=== PATIENT | male | born 1935 | race Caucasian/White ===

== ENCOUNTER 2019-12-01 07:00 | Outpatient (CLI) | payer MEDICARE, SELFPAY ==
[2019-12-01 07:36] LABS: Hemoglobin A1C 6.1 % (<5.7)
[2019-12-01 07:44] LABS: Blood Urea Nitrogen 32 mg/dL (9-20); Calcium 8.7 mg/dL (8.4-10.2); Carbon Dioxide 25 mmol/L (22-30); Chloride 106 mmol/L (98-107); Cholesterol 158 mg/dL (0-200); Estimated Glomerular Filt Rate 45; Glucose 112 mg/dL (75-110); HDL Direct 38 mg/dL; Potassium 4.4 mmol/L (3.4-5.0); Sodium 138 mmol/L (137-145); Triglycerides 72 mg/dL (<150)
[2019-12-01 07:55] LABS: LDL Cholesterol Direct 83 mg/dL
[2019-12-01 08:23] LABS: Free T4 Free Thyroxine 1.44 ng/mL (0.78-2.19)
[2019-12-05 22:55] LABS: Homocysteine 15.3 umol/L (<11.4)
== END 2019-12-01 07:01 | disposition home or self-care (01) ==
PROVIDERS: PCP Internal Medicine; Visit Provider Internal Medicine
DX: E03.9 Hypothyroidism, unspecified (principal); E78.2 Mixed hyperlipidemia; R79.89 Other specified abnormal findings of blood chemistry; I10 Essential (primary) hypertension; E11.22 Type 2 diabetes mellitus with diabetic chronic kidney disease; N18.2 Chronic kidney disease, stage 2 (mild)
CPT/HCPCS: 36415; 80048; 80061; 83036; 83090; 84439; 84443

== ENCOUNTER 2020-04-24 07:37 | Outpatient (CLI) | payer MEDICARE, SELFPAY ==
[2020-04-24 08:07] LABS: Anion Gap 6 mmol/L (8-16); Blood Urea Nitrogen 27 mg/dL (9-20); Calcium 9.1 mg/dL (8.4-10.2); Carbon Dioxide 28 mmol/L (22-30); Chloride 106 mmol/L (98-107); Cholesterol 140 mg/dL (0-200); Estimated Glomerular Filt Rate 48; Glucose 117 mg/dL (75-110); HDL Direct 39 mg/dL; Hemoglobin A1C 5.6 % (<5.7); Potassium 4.5 mmol/L (3.4-5.0); Sodium 140 mmol/L (137-145); Triglycerides 72 mg/dL (<150)
[2020-04-24 08:18] LABS: LDL Cholesterol Direct 71 mg/dL
[2020-04-24 09:43] LABS: Free T4 Free Thyroxine 1.52 ng/mL (0.78-2.19)
[2020-04-27 22:44] LABS: Vitamin D 1,25 (OH)2 Total 20 pg/mL (18-72); Vitamin D2 1,25 (OH)2 <8 pg/mL; Vitamin D3 1,25 (OH)2 20 pg/mL
[2020-05-01 12:35] LABS: Homocysteine 12.2 umol/L (<11.4)
== END 2020-04-24 07:38 | disposition home or self-care (01) ==
PROVIDERS: PCP Internal Medicine; Visit Provider Internal Medicine
DX: E11.22 Type 2 diabetes mellitus with diabetic chronic kidney disease (principal); I12.9 Hypertensive chronic kidney disease with stage 1 through stage 4 chronic kidney disease, or unspecified chronic kidney disease; N18.2 Chronic kidney disease, stage 2 (mild); E03.9 Hypothyroidism, unspecified; R79.89 Other specified abnormal findings of blood chemistry; E78.2 Mixed hyperlipidemia; E55.9 Vitamin D deficiency, unspecified
CPT/HCPCS: 36415; 80048; 80061; 82652; 83036; 83090; 84439; 84443

== ENCOUNTER 2020-09-05 08:05 | Outpatient (CLI) | payer MEDICARE, SELFPAY ==
[2020-09-05 08:40] LABS: Basophils Percent Auto 0.5 % (0.2-1.2); Eosinophils Absolute Auto 0.4 K/mm3 (0-0.3); Eosinophils Percent Auto 4.8 % (0-4.4); Hematocrit 37.2 % (42.0-52.0); Immature Granulocyte Absolute 0.03 K/mm3 (0.00-0.031); Immature Granulocyte Percent A 0.4 % (0-0.5); Lymphocytes Absolute Auto 1.73 K/mm3 (0.9-3.2); Lymphocytes Percent Auto 23.7 % (18.3-44.2); Mean Corpuscular HGB Conc 32.3 g/dl (32-36); Mean Corpuscular Volume 96.1 fl (80-100); Mean Platelet Volume 9.7 fl (7.4-10.4); Monocytes Absolute Auto 0.7 K/mm3 (0.1-0.6); Monocytes Percent Auto 9.3 % (2.6-8.5); Neutrophils Absolute Auto 4.5 K/mm3 (1.3-6.7); Neutrophils Percent Auto 61.3 % (45.5-73.1); Platelet Count Result 227 k/mm3 (150-375); Red Blood Count 3.87 M/mm3 (4.6-6.20); Red Cell Distribution Width 13.7 % (11.5-14.5); White Blood Count 7.3 K/mm3 (4.5-10.0)
[2020-09-05 09:05] LABS: Alanine Aminotransferase 23 U/L (4-50); Albumin Level 4.1 g/dL (3.5-5.1); Alkaline Phosphatase 56 U/L (38-126); Anion Gap 5 mmol/L (8-16); Aspartate Amino Transferase 31 U/L (17-59); Bilirubin,Total 0.7 mg/dL (0.2-1.3); Blood Urea Nitrogen 30 mg/dL (9-20); Calcium 8.6 mg/dL (8.4-10.2); Carbon Dioxide 27 mmol/L (22-30); Chloride 107 mmol/L (98-107); Cholesterol 124 mg/dL (0-200); Estimated Glomerular Filt Rate 44; Glucose 107 mg/dL (75-110); HDL Direct 44 mg/dL; Potassium 4.6 mmol/L (3.4-5.0); Sodium 139 mmol/L (137-145); Triglycerides 62 mg/dL (<150)
[2020-09-05 09:17] LABS: LDL Cholesterol Direct 58 mg/dL
[2020-09-05 09:31] LABS: Hemoglobin A1C 5.9 % (<5.7)
[2020-09-05 09:46] LABS: Free T4 Free Thyroxine 1.46 ng/mL (0.78-2.19); Vitamin D 25 Hydroxy 34.4 ng/mL
[2020-09-05 09:58] LABS: Creatinine Urine 67.8 mg/dL
[2020-09-05 10:03] LABS: MALB Creatinine Ratio 16.2 mg/g (0-30)
[2020-09-06 11:14] LABS: Iron 115 ug/dL (49-181)
[2020-09-06 11:24] LABS: Percent Iron Saturation 49 % (20-50)
== END 2020-09-05 08:06 | disposition home or self-care (01) ==
LOC: ANHLAB 09-06 10:58
PROVIDERS: PCP Internal Medicine; Visit Provider Internal Medicine
DX: E03.9 Hypothyroidism, unspecified (principal); E55.9 Vitamin D deficiency, unspecified; E78.2 Mixed hyperlipidemia; I10 Essential (primary) hypertension; E11.22 Type 2 diabetes mellitus with diabetic chronic kidney disease; N18.2 Chronic kidney disease, stage 2 (mild); R79.89 Other specified abnormal findings of blood chemistry; Z79.899 Other long term (current) drug therapy
CPT/HCPCS: 36415; 80053; 80061; 82043; 82306; 82728; 83036; 83540; 83550; 84439; 84443; 85025

== ENCOUNTER 2021-01-08 07:59 | Outpatient (CLI) | payer MEDICARE, SELFPAY ==
[2021-01-08 08:28] LABS: Mean Corpuscular HGB Conc 32.4 g/dl (32-36); Mean Corpuscular Hemoglobin 30.8 pg (26-34); Mean Corpuscular Volume 95.1 fl (80-100); Mean Platelet Volume 9.8 fl (7.4-10.4); Platelet Count Result 242 k/mm3 (150-375); Red Blood Count 3.89 M/mm3 (4.6-6.20); Red Cell Distribution Width 13.6 % (11.5-14.5); White Blood Count 6.1 K/mm3 (4.5-10.0)
[2021-01-08 08:40] LABS: Alanine Aminotransferase 20 U/L (4-50); Albumin Level 4.1 g/dL (3.5-5.1); Alkaline Phosphatase 58 U/L (38-126); Anion Gap 5 mmol/L (8-16); Aspartate Amino Transferase 28 U/L (17-59); Bilirubin,Total 0.8 mg/dL (0.2-1.3); Blood Urea Nitrogen 35 mg/dL (9-20); Calcium 8.8 mg/dL (8.4-10.2); Carbon Dioxide 24 mmol/L (22-30); Chloride 108 mmol/L (98-107); Cholesterol 142 mg/dL (0-200); Estimated Glomerular Filt Rate 48; Glucose 111 mg/dL (65-110); HDL Direct 39 mg/dL; Potassium 4.5 mmol/L (3.4-5.0); Sodium 137 mmol/L (137-145); Triglycerides 71 mg/dL (<150)
[2021-01-08 08:51] LABS: LDL Cholesterol Direct 60 mg/dL
[2021-01-08 10:28] LABS: Band Neutrophils Percent 1 % (0-6); Eosinophils Absolute Manual 0.06 K/mm3 (0.02-0.5); Eosinophils Percent Manual 1 % (0-4); Hypochromasia 1+ (NORMAL); Lymphocytes Absolute Manual 1.46 K/mm3 (1.1-4.5); Metamyelocytes Percent 1 %; Monocytes Percent Manual 5 % (3-9); Neutrophils Percent Manual 68 % (46-73); Platelet Estimate Adequate (Adequate); Total Cells Counted 100
[2021-01-12 04:14] LABS: Vitamin D 1,25 (OH)2 Total 19 pg/mL (18-72); Vitamin D2 1,25 (OH)2 <8 pg/mL; Vitamin D3 1,25 (OH)2 19 pg/mL
== END 2021-01-08 08:00 | disposition home or self-care (01) ==
PROVIDERS: PCP Internal Medicine; Visit Provider Internal Medicine
DX: E55.9 Vitamin D deficiency, unspecified (principal); I10 Essential (primary) hypertension; Z79.899 Other long term (current) drug therapy; E11.22 Type 2 diabetes mellitus with diabetic chronic kidney disease; N18.2 Chronic kidney disease, stage 2 (mild)
CPT/HCPCS: 36415; 80053; 80061; 82652; 83036; 85025

== ENCOUNTER 2021-01-10 13:01 | Outpatient (CLI) | payer MEDICARE, SELFPAY ==
[2021-01-10 14:17] LABS: Immature Reticulocyte Fraction 8.8 % (3.0-15.9); Reticulocyte Hemoglobin Conten 36.8 pg (28.2-35.7); Reticulocyte Percent 1.54 % (0.7-4.3); Reticulocytes Absolute 0.06 B/L (32.2-175.7)
[2021-01-10 14:23] LABS: Iron 104 ug/dL (49-181)
[2021-01-10 14:33] LABS: Percent Iron Saturation 45 % (20-50)
== END 2021-01-10 13:02 | disposition home or self-care (01) ==
PROVIDERS: PCP Internal Medicine; Visit Provider Internal Medicine
DX: D63.8 Anemia in other chronic diseases classified elsewhere (principal)
CPT/HCPCS: 36415; 82728; 83540; 83550; 85046

== ENCOUNTER 2021-06-04 08:02 | Outpatient (CLI) | payer MEDICARE, SELFPAY ==
[2021-06-04 08:55] LABS: Alanine Aminotransferase 22 U/L (4-50); Albumin Level 4.1 g/dL (3.5-5.1); Alkaline Phosphatase 59 U/L (38-126); Anion Gap 9 mmol/L (8-16); Aspartate Amino Transferase 30 U/L (17-59); Bilirubin,Total 0.7 mg/dL (0.2-1.3); Blood Urea Nitrogen 33 mg/dL (9-20); Calcium 8.7 mg/dL (8.4-10.2); Carbon Dioxide 23 mmol/L (22-30); Chloride 106 mmol/L (98-107); Cholesterol 140 mg/dL (0-200); Estimated Glomerular Filt Rate 41; Glucose 116 mg/dL (65-110); HDL Direct 43 mg/dL; Potassium 4.5 mmol/L (3.4-5.0); Sodium 138 mmol/L (137-145); Triglycerides 65 mg/dL (<150)
[2021-06-04 09:06] LABS: LDL Cholesterol Direct 65 mg/dL
[2021-06-04 10:04] LABS: Free T4 Free Thyroxine 1.45 ng/mL (0.78-2.19); Vitamin D 25 Hydroxy 45.2 ng/mL
== END 2021-06-04 08:03 | disposition home or self-care (01) ==
PROVIDERS: PCP Internal Medicine; Visit Provider Internal Medicine
DX: E11.22 Type 2 diabetes mellitus with diabetic chronic kidney disease (principal); E55.9 Vitamin D deficiency, unspecified; E78.2 Mixed hyperlipidemia; N18.2 Chronic kidney disease, stage 2 (mild); I10 Essential (primary) hypertension; Z79.899 Other long term (current) drug therapy
CPT/HCPCS: 36415; 80053; 80061; 82306; 83036; 84439; 84443

== ENCOUNTER 2021-10-22 08:10 | Outpatient (CLI) | payer MEDICARE, SELFPAY ==
[2021-10-22 09:13] LABS: Basophils Percent Auto 0.4 % (0.2-1.2); Eosinophils Absolute Auto 0.5 K/mm3 (0-0.3); Eosinophils Percent Auto 6.2 % (0-4.4); Hematocrit 38.8 % (42.0-52.0); Hemoglobin 12.2 g/dL (14.0-18.0); Immature Granulocyte Absolute 0.04 K/mm3 (0.00-0.031); Immature Granulocyte Percent A 0.6 % (0-0.5); Lymphocytes Absolute Auto 1.54 K/mm3 (0.9-3.2); Lymphocytes Percent Auto 21.3 % (18.3-44.2); Mean Corpuscular HGB Conc 31.4 g/dl (32-36); Mean Corpuscular Hemoglobin 30.9 pg (26-34); Mean Corpuscular Volume 98.2 fl (80-100); Mean Platelet Volume 9.8 fl (7.4-10.4); Monocytes Absolute Auto 0.7 K/mm3 (0.1-0.6); Monocytes Percent Auto 9.6 % (2.6-8.5); Neutrophils Absolute Auto 4.5 K/mm3 (1.3-6.7); Neutrophils Percent Auto 61.9 % (45.5-73.1); Platelet Count Result 257 k/mm3 (150-375); Red Blood Count 3.95 M/mm3 (4.6-6.20); Red Cell Distribution Width 13.6 % (11.5-14.5); White Blood Count 7.2 K/mm3 (4.5-10.0)
[2021-10-22 09:23] LABS: Alanine Aminotransferase 17 U/L (6-50); Albumin Level 4.1 g/dL (3.5-5.1); Alkaline Phosphatase 63 U/L (38-126); Anion Gap 5 mmol/L (8-16); Aspartate Amino Transferase 28 U/L (17-59); Bilirubin,Total 0.6 mg/dL (0.2-1.3); Blood Urea Nitrogen 32 mg/dL (9-20); Calcium 8.6 mg/dL (8.4-10.2); Carbon Dioxide 27 mmol/L (22-30); Chloride 106 mmol/L (98-107); Cholesterol 142 mg/dL (0-200); Estimated Glomerular Filt Rate 36; Glucose 110 mg/dL (65-110); HDL Direct 43 mg/dL; Potassium 4.8 mmol/L (3.4-5.0); Sodium 138 mmol/L (137-145); Triglycerides 63 mg/dL (<150)
[2021-10-22 09:34] LABS: LDL Cholesterol Direct 67 mg/dL
[2021-10-22 10:02] LABS: Vitamin D 25 Hydroxy 46.4 ng/mL
== END 2021-10-22 08:11 | disposition home or self-care (01) ==
PROVIDERS: PCP Internal Medicine; Visit Provider Internal Medicine
DX: I12.9 Hypertensive chronic kidney disease with stage 1 through stage 4 chronic kidney disease, or unspecified chronic kidney disease (principal); N18.2 Chronic kidney disease, stage 2 (mild); E11.22 Type 2 diabetes mellitus with diabetic chronic kidney disease; E78.2 Mixed hyperlipidemia; E55.9 Vitamin D deficiency, unspecified
CPT/HCPCS: 36415; 80053; 80061; 82306; 83036; 85025

== ENCOUNTER 2022-02-23 08:39 | Outpatient (CLI) | payer MEDICARE, SELFPAY ==
[2022-02-23 08:57] LABS: Basophils Percent Auto 0.6 % (0.2-1.2); Eosinophils Absolute Auto 0.3 K/mm3 (0-0.3); Eosinophils Percent Auto 5.1 % (0-4.4); Hematocrit 36.6 % (42.0-52.0); Hemoglobin 11.9 g/dL (14.0-18.0); Immature Granulocyte Absolute 0.02 K/mm3 (0.00-0.031); Immature Granulocyte Percent A 0.3 % (0-0.5); Lymphocytes Absolute Auto 1.68 K/mm3 (0.9-3.2); Lymphocytes Percent Auto 25.1 % (18.3-44.2); Mean Corpuscular HGB Conc 32.5 g/dl (32-36); Mean Corpuscular Hemoglobin 31.1 pg (26-34); Mean Corpuscular Volume 95.6 fl (80-100); Mean Platelet Volume 9.3 fl (7.4-10.4); Monocytes Absolute Auto 0.5 K/mm3 (0.1-0.6); Monocytes Percent Auto 7.6 % (2.6-8.5); Neutrophils Absolute Auto 4.1 K/mm3 (1.3-6.7); Neutrophils Percent Auto 61.3 % (45.5-73.1); Platelet Count Result 238 k/mm3 (150-375); Red Blood Count 3.83 M/mm3 (4.6-6.20); Red Cell Distribution Width 13.7 % (11.5-14.5); White Blood Count 6.7 K/mm3 (4.5-10.0)
[2022-02-23 09:10] LABS: Alanine Aminotransferase 23 U/L (6-50); Albumin Level 4.2 g/dL (3.5-5.1); Alkaline Phosphatase 55 U/L (38-126); Anion Gap 9 mmol/L (8-16); Aspartate Amino Transferase 33 U/L (17-59); Bilirubin,Total 0.6 mg/dL (0.2-1.3); Blood Urea Nitrogen 32 mg/dL (9-20); Calcium 8.5 mg/dL (8.4-10.2); Carbon Dioxide 28 mmol/L (22-30); Chloride 105 mmol/L (98-107); Cholesterol 135 mg/dL (0-200); Estimated Glomerular Filt Rate 36; Glucose 114 mg/dL (65-110); HDL Direct 43 mg/dL; Potassium 4.8 mmol/L (3.4-5.0); Sodium 142 mmol/L (137-145); Triglycerides 55 mg/dL (<150)
[2022-02-23 09:21] LABS: LDL Cholesterol Direct 67 mg/dL
[2022-02-23 09:29] LABS: Free T4 Free Thyroxine 1.74 ng/mL (0.78-2.19)
== END 2022-02-23 08:40 | disposition home or self-care (01) ==
PROVIDERS: PCP Internal Medicine; Visit Provider Internal Medicine
DX: I12.9 Hypertensive chronic kidney disease with stage 1 through stage 4 chronic kidney disease, or unspecified chronic kidney disease (principal); N18.2 Chronic kidney disease, stage 2 (mild); E78.5 Hyperlipidemia, unspecified; E11.22 Type 2 diabetes mellitus with diabetic chronic kidney disease; E03.9 Hypothyroidism, unspecified
CPT/HCPCS: 36415; 80053; 80061; 83036; 84439; 84443; 85025

== ENCOUNTER 2022-07-23 08:32 | Outpatient (CLI) | payer MEDICARE, SELFPAY ==
[2022-07-23 08:58] LABS: Basophils Percent Auto 0.6 % (0.2-1.2); Eosinophils Absolute Auto 0.3 K/mm3 (0-0.3); Eosinophils Percent Auto 4.5 % (0-4.4); Hematocrit 38.2 % (42.0-52.0); Hemoglobin 12.3 g/dL (14.0-18.0); Immature Granulocyte Absolute 0.03 K/mm3 (0.00-0.031); Immature Granulocyte Percent A 0.4 % (0-0.5); Lymphocytes Absolute Auto 1.76 K/mm3 (0.9-3.2); Lymphocytes Percent Auto 26.1 % (18.3-44.2); Mean Corpuscular HGB Conc 32.2 g/dl (32-36); Mean Corpuscular Hemoglobin 31.2 pg (26-34); Mean Platelet Volume 9.7 fl (7.4-10.4); Monocytes Absolute Auto 0.6 K/mm3 (0.1-0.6); Monocytes Percent Auto 8.8 % (2.6-8.5); Neutrophils Percent Auto 59.6 % (45.5-73.1); Platelet Count Result 255 k/mm3 (150-375); Red Blood Count 3.94 M/mm3 (4.6-6.20); Red Cell Distribution Width 13.8 % (11.5-14.5); White Blood Count 6.7 K/mm3 (4.5-10.0)
[2022-07-23 09:13] LABS: Alanine Aminotransferase 21 U/L (6-50); Albumin Level 4.1 g/dL (3.5-5.1); Alkaline Phosphatase 61 U/L (38-126); Anion Gap 5 mmol/L (8-16); Aspartate Amino Transferase 28 U/L (17-59); Bilirubin,Total 0.8 mg/dL (0.2-1.3); Blood Urea Nitrogen 25 mg/dL (9-20); Calcium 8.3 mg/dL (8.4-10.2); Carbon Dioxide 28 mmol/L (22-30); Chloride 106 mmol/L (98-107); Cholesterol 144 mg/dL (0-200); Estimated Glomerular Filt Rate 41; Glucose 107 mg/dL (65-110); HDL Direct 38 mg/dL; Potassium 4.7 mmol/L (3.4-5.0); Sodium 139 mmol/L (137-145); Triglycerides 59 mg/dL (<150)
[2022-07-23 09:15] LABS: Hemoglobin A1C 5.8 % (<5.7)
[2022-07-23 09:25] LABS: LDL Cholesterol Direct 74 mg/dL
[2022-07-23 09:43] LABS: Free T4 Free Thyroxine 1.82 ng/mL (0.78-2.19); Vitamin D 25 Hydroxy 46.3 ng/mL
== END 2022-07-23 08:33 | disposition home or self-care (01) ==
LOC: ANHLAB 08:33
PROVIDERS: PCP Internal Medicine; Visit Provider Internal Medicine
DX: E78.2 Mixed hyperlipidemia (principal); E55.9 Vitamin D deficiency, unspecified; E03.9 Hypothyroidism, unspecified; E11.22 Type 2 diabetes mellitus with diabetic chronic kidney disease; I12.9 Hypertensive chronic kidney disease with stage 1 through stage 4 chronic kidney disease, or unspecified chronic kidney disease; N18.2 Chronic kidney disease, stage 2 (mild)
CPT/HCPCS: 36415; 80053; 80061; 82306; 83036; 84439; 84443; 85025

== ENCOUNTER 2022-07-31 11:04 | Outpatient (CLI) | payer MEDICARE, SELFPAY ==
--- NOTE | ~2022-07-31 | XR_ITS ---
EXAMINATION: XR hip RT min 3V w AP pelvis DATE: 07/31/2022 11:28 INDICATION: Right hip/groin pain TECHNIQUE: Anteroposterior view of the pelvis and anteroposterior, frog leg and cross-table lateral v iews of the right hip were obtained. COMPARISON: None. FINDINGS: Alignment is normal. No fracture or suspected avascular necrosis. 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 Moderate lumbar spondy losis with transitional lumbosacral segment. Phleboliths in the pelvis. IMPRESSION: 1. Mild bilateral hip osteoarthritis, right greater than left. No acute osseous abnormality. 2. Moderate lumbar spondylosis. Reviewed, dictated and finalized at location B.
== END 2022-07-31 11:05 | disposition home or self-care (01) ==
PROVIDERS: PCP Internal Medicine; Visit Provider Internal Medicine
DX: M47.816 Spondylosis without myelopathy or radiculopathy, lumbar region (principal); M16.0 Bilateral primary osteoarthritis of hip; M25.551 Pain in right hip; R10.2 Pelvic and perineal pain
CPT/HCPCS: 73502

== ENCOUNTER → 2022-08-03 14:28 | Outpatient (CLI) | payer MEDICARE, SELFPAY ==
--- NOTE | ~2022-08-03 | MR_ITS ---
EXAMINATION: MR hip RT wo con DATE: 08/03/2022 16:29 INDICATION: Right hip pain TECHNIQUE: Magnetic resonance imaging (MRI) of the right hip was performed without intravenous contr ast. Sequences included full-field axial PD-weighted FS FSE and T1-weighted FSE, coronal of the pelvi s with PD-weighted FS FSE, small field of view of the affected hip with axial PD-weighted FS FSE, sa gittal PD-weighted FS FSE and coronal PD weighted FS FSE. Additional radial T1-weighted FGR oriented orthogonal to the acetabular rim were obtained for evaluation of the labrum. COMPARISON: None FINDINGS: Bones/labrum/cartilage: Alignment is normal. No fracture, avascular necrosis or pathologic marrow replacing process. Transit ional partially lumbarized S1 segment with severe lumbar spondylosis. Moderate osteoarthritis at the right hip with nonuniform joint space narrowing with partial thickness cartilage loss which appears t o involve at least 50% the cartilage thickness and anterosuperiorly. There is mild subarticular edema along the apex of the right femoral head most likely related to overlying high-grade chondromalacia. There is diffuse degenerative tearing of the right acetabular labrum. There is suggestion of similar labral degeneration with mild osteoarthritis at the left hip which is not diagnostically evaluated o n the larger [id number] images. Fluid: Likely reactive moderate sized right hip joint effusion. Soft tissues: Normal and symmetric muscle bulk and signal in the pelvis and visualized proximal thighs. The iliopso as, gluteal and proximal hamstring tendons are normal. Prostatomegaly. Limited evaluation of visceral organs of the pelvis is unremarkable. 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 Bilateral small fat-containing inguinal hernias. Bilateral hydroc eles, large on the right and small on the left. No pathologically enlarged pelvic/inguinal lymphadeno andres. IMPRESSION: 1. 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 2. Severe lumbar spondylosis. 3. Small left and large right hydroceles. 4. Small bilateral fat-containing inguinal hernias. Reviewed, dictated and finalized at location A. IMPRESSION: 1. 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 2. Severe lumbar spondylosis. 3. Small left and large right hydroceles. 4. Small bilateral fat-containing inguinal hernias.
== END ==
PROVIDERS: PCP Internal Medicine; Visit Provider Orthopaedic Surgery
DX: M25.551 Pain in right hip (principal); M16.11 Unilateral primary osteoarthritis, right hip; M94.251 Chondromalacia, right hip; S73.101A Unspecified sprain of right hip, initial encounter; M43.06 Spondylolysis, lumbar region; N43.3 Hydrocele, unspecified; K40.20 Bilateral inguinal hernia, without obstruction or gangrene, not specified as recurrent
CPT/HCPCS: 73721

== ENCOUNTER 2022-12-10 07:30 | Outpatient (CLI) | payer MEDICARE, SELFPAY ==
[2022-12-10 08:09] LABS: Alanine Aminotransferase 21 U/L (6-50); Alkaline Phosphatase 55 U/L (38-126); Anion Gap 9 mmol/L (8-16); Aspartate Amino Transferase 27 U/L (17-59); Bilirubin,Total 0.6 mg/dL (0.2-1.3); Blood Urea Nitrogen 34 mg/dL (9-20); Calcium 8.6 mg/dL (8.4-10.2); Carbon Dioxide 24 mmol/L (22-30); Chloride 103 mmol/L (98-107); Cholesterol 141 mg/dL (0-200); Estimated Glomerular Filt Rate 48; Glucose 104 mg/dL (65-110); HDL Direct 40 mg/dL; Potassium 4.6 mmol/L (3.4-5.0); Sodium 136 mmol/L (137-145); Triglycerides 56 mg/dL (<150)
[2022-12-10 08:20] LABS: LDL Cholesterol Direct 69 mg/dL
[2022-12-10 08:21] LABS: Basophils Percent Auto 0.4 % (0.2-1.2); Eosinophils Absolute Auto 0.3 K/mm3 (0-0.3); Eosinophils Percent Auto 4.7 % (0-4.4); Hematocrit 35.9 % (42.0-52.0); Hemoglobin 11.3 g/dL (14.0-18.0); Immature Granulocyte Absolute 0.04 K/mm3 (0.00-0.031); Immature Granulocyte Percent A 0.6 % (0-0.5); Lymphocytes Percent Auto 28.9 % (18.3-44.2); Mean Corpuscular HGB Conc 31.5 g/dl (32-36); Mean Corpuscular Hemoglobin 30.9 pg (26-34); Mean Corpuscular Volume 98.1 fl (80-100); Monocytes Absolute Auto 0.6 K/mm3 (0.1-0.6); Monocytes Percent Auto 8.8 % (2.6-8.5); Neutrophils Absolute Auto 4.1 K/mm3 (1.3-6.7); Neutrophils Percent Auto 56.6 % (45.5-73.1); Platelet Count Result 251 k/mm3 (150-375); Red Blood Count 3.66 M/mm3 (4.6-6.20); Red Cell Distribution Width 13.9 % (11.5-14.5); White Blood Count 7.3 K/mm3 (4.5-10.0)
[2022-12-10 08:55] LABS: Hemoglobin A1C 5.9 % (<5.7)
== END 2022-12-10 07:31 | disposition home or self-care (01) ==
LOC: ANHLAB 07:31
PROVIDERS: PCP Internal Medicine; Visit Provider Internal Medicine
DX: N18.2 Chronic kidney disease, stage 2 (mild) (principal); E11.22 Type 2 diabetes mellitus with diabetic chronic kidney disease; E78.2 Mixed hyperlipidemia; I10 Essential (primary) hypertension
CPT/HCPCS: 36415; 80053; 80061; 83036; 85025

== ENCOUNTER 2022-12-14 08:05 | Outpatient (CLI) | payer MEDICARE, SELFPAY ==
[2022-12-14 09:16] LABS: Hematocrit 37.3 % (42.0-52.0); Hemoglobin 11.8 g/dL (14.0-18.0)
[2022-12-14 09:52] LABS: Iron 106 ug/dL (49-181)
[2022-12-14 10:02] LABS: Percent Iron Saturation 41 % (20-50)
== END 2022-12-14 08:06 | disposition home or self-care (01) ==
PROVIDERS: PCP Internal Medicine; Visit Provider Internal Medicine
DX: D63.8 Anemia in other chronic diseases classified elsewhere (principal); Z79.899 Other long term (current) drug therapy
CPT/HCPCS: 36415; 82728; 83540; 83550; 85014; 85018

== ENCOUNTER 2022-12-15 10:31 | Outpatient (NON) | payer MEDICARE, SELFPAY ==
[2022-12-15 12:30] LABS: IFOB Positive Control Positive; Immunochemical Fecal Occult Bl Negative (N)
== END 2022-12-15 10:32 | disposition home or self-care (01) ==
PROVIDERS: PCP Internal Medicine; Visit Provider Internal Medicine
DX: D63.8 Anemia in other chronic diseases classified elsewhere (principal)
CPT/HCPCS: 82274

== ENCOUNTER 2023-03-22 07:35 | Outpatient (CLI) | payer MEDICARE, SELFPAY ==
[2023-03-22 07:55] LABS: Basophils Percent Auto 0.4 % (0.2-1.2); Eosinophils Absolute Auto 0.3 K/mm3 (0-0.3); Hematocrit 36.4 % (42.0-52.0); Hemoglobin 11.7 g/dL (14.0-18.0); Immature Granulocyte Absolute 0.04 K/mm3 (0.00-0.031); Immature Granulocyte Percent A 0.5 % (0-0.5); Lymphocytes Absolute Auto 2.19 K/mm3 (0.9-3.2); Lymphocytes Percent Auto 26.5 % (18.3-44.2); Mean Corpuscular HGB Conc 32.1 g/dl (32-36); Mean Corpuscular Volume 96.6 fl (80-100); Mean Platelet Volume 9.5 fl (7.4-10.4); Monocytes Absolute Auto 0.7 K/mm3 (0.1-0.6); Monocytes Percent Auto 8.8 % (2.6-8.5); Neutrophils Absolute Auto 4.9 K/mm3 (1.3-6.7); Neutrophils Percent Auto 59.8 % (45.5-73.1); Platelet Count Result 235 k/mm3 (150-375); Red Blood Count 3.77 M/mm3 (4.6-6.20); White Blood Count 8.3 K/mm3 (4.5-10.0)
[2023-03-22 08:07] LABS: Alanine Aminotransferase 18 U/L (6-50); Alkaline Phosphatase 53 U/L (38-126); Anion Gap 5 mmol/L (8-16); Aspartate Amino Transferase 24 U/L (17-59); Bilirubin,Total 0.8 mg/dL (0.2-1.3); Blood Urea Nitrogen 35 mg/dL (9-20); Calcium 9.1 mg/dL (8.4-10.2); Carbon Dioxide 26 mmol/L (22-30); Chloride 106 mmol/L (98-107); Estimated Glomerular Filt Rate 44; Glucose 108 mg/dL (65-110); Potassium 4.7 mmol/L (3.4-5.0); Sodium 137 mmol/L (137-145)
[2023-03-22 08:25] LABS: Free T4 Free Thyroxine 2.07 ng/mL (0.78-2.19)
[2023-03-22 11:37] LABS: Cholesterol 142 mg/dL (0-200); HDL Direct 40 mg/dL; Triglycerides 50 mg/dL (<150)
[2023-03-22 11:46] LABS: LDL Cholesterol Direct 75 mg/dL
[2023-03-22 12:08] LABS: Hemoglobin A1C 5.7 % (<5.7)
== END 2023-03-22 07:36 | disposition home or self-care (01) ==
LOC: ANHLAB 07:37
PROVIDERS: PCP Internal Medicine; Visit Provider Internal Medicine
DX: D63.8 Anemia in other chronic diseases classified elsewhere (principal); E03.9 Hypothyroidism, unspecified; E78.5 Hyperlipidemia, unspecified; Z79.899 Other long term (current) drug therapy; E11.22 Type 2 diabetes mellitus with diabetic chronic kidney disease; E78.2 Mixed hyperlipidemia; I12.9 Hypertensive chronic kidney disease with stage 1 through stage 4 chronic kidney disease, or unspecified chronic kidney disease; N18.2 Chronic kidney disease, stage 2 (mild)
CPT/HCPCS: 36415; 80053; 80061; 83036; 84439; 84443; 85025

== ENCOUNTER 2023-03-23 11:40 | Outpatient (CLI) | payer MEDICARE, SELFPAY ==
[2023-03-23 12:56] LABS: Urine Cotinine NEGATIVE
[2023-03-23 12:58] LABS: INR 1.1; Prothrombin Time 14.4 Seconds (11.1-14.7)
== END 2023-03-23 11:41 | disposition home or self-care (01) ==
LOC: ANHSURGERY 11:46
PROVIDERS: Anesthesiology; PCP Internal Medicine; Visit Provider Orthopaedic Surgery
DX: Z01.818 Encounter for other preprocedural examination (principal); M16.11 Unilateral primary osteoarthritis, right hip; N18.9 Chronic kidney disease, unspecified
CPT/HCPCS: 36415; 80307; 85610; 85730; 87081

== ENCOUNTER 2023-03-25 07:32 | Outpatient (CLI) | payer MEDICARE, SELFPAY ==
[2023-03-25 08:29] LABS: Alanine Aminotransferase 17 U/L (6-50); Albumin Level 3.9 g/dL (3.5-5.1); Alkaline Phosphatase 52 U/L (38-126); Anion Gap 7 mmol/L (8-16); Aspartate Amino Transferase 24 U/L (17-59); Bilirubin,Total 0.8 mg/dL (0.2-1.3); Blood Urea Nitrogen 30 mg/dL (9-20); Calcium 9.1 mg/dL (8.4-10.2); Carbon Dioxide 25 mmol/L (22-30); Chloride 104 mmol/L (98-107); Estimated Glomerular Filt Rate 44; Glucose 108 mg/dL (65-110); Potassium 4.6 mmol/L (3.4-5.0); Sodium 136 mmol/L (137-145)
== END 2023-03-25 07:33 | disposition home or self-care (01) ==
PROVIDERS: PCP Internal Medicine; Visit Provider Internal Medicine
DX: N18.2 Chronic kidney disease, stage 2 (mild) (principal)
CPT/HCPCS: 36415; 80053

== ENCOUNTER 2023-04-13 06:41 | Observation (INO) | payer MEDICARE, SELFPAY ==
--- NOTE | 2023-03-23 11:29 | PC.NURSE ---
PRE-OP INSTRUCTIONS, PLEASE READ CAREFULLY Report to the Outpatient Waiting Room, entrance under the green pavilion located off [facility], at time _0600_ on date _04/19/23_. Planned Procedure Time: _0730_. PACK A SMALL OVERNIGHT BAG AND LEAVE IN THE CAR ALONG WITH YOUR WALKER Time changes happen often and if your time is changed the preop area will call you the afternoon before. - You and your visitor will be asked to self-screen and do not enter if you have any COVID symptoms. - A mask is optional within the hospital at this time. -VISITING HOURS 8AM-8PM Patients may have clear liquids (water, carbonated beverages, clear teas, apple juice) until 3 hours prior to surgery (0430 AM) with a maximum of 20 ounces. - No food from midnight until time of surgery Take the following medications with a SIP of water the morning of surgery: _LEVOTHYROXINE_ DO NOT STOP ANY OF YOUR OTHER PRESCRIPTION MEDICATIONS PRIOR TO SURGERY ?EXCEPT THE FOLLOWING Medications to discontinue per physician - _ PT STATES TO CONTINUE ASPIRIN PER DR. PENA. Date to take last dose_N/A__ Please no make-up, nail malian, hairspray, perfume, deodorant, or body powder the day of surgery. No jewelry (including any body piercings) or valuables the day of surgery, leave them at home. Please take a shower or bath the night before, or the morning of, surgery with an antibacterial soap. Wear comfortable, loose fitting clothing. - Jewelry must be removed prior to entering the operating room. Rings and piercings that are not removed may be cut off. - The hospital will not accept responsibility for valuables. - Please leave all valuables, including medications, at home the day of surgery. If you are going home after surgery, a licensed regional otr company driver must drive you home. - NO public transportation without another adult if you receive anesthesia. - We recommend that an adult stay with you for 24 hours following discharge. - We also recommend that you do not drive, make important decision, drink alcoholic beverages, or take any drugs that were not prescribed by your health care provider for at least 24 hours after your discharge time. Follow any additional instructions given to you from your surgeon. If you or anyone in your household have experienced Covid symptoms in the past week, please notify your surgeon or the nurse liaison at the phone number below for possible testing. Instructions given to _PATIENT & SPOUSE_and asked if any additional questions and then verbalized understanding. Patient advised to call surgeon office or pre surgery nurse liaison [phone] if any additional questions.
[2023-03-23 12:10] VITALS: BP 128/80; PULSE 72; RESP 20; TEMP 36.9; O2SAT 98; BMI 36.3
--- NOTE | 2023-03-24 14:51 | PC.NURSE ---
Report to the Outpatient Waiting Room, entrance under the green pavilion located off [facility], at time __0600 on date __03/29/23 . Planned Procedure Time: __07 . Time changes happen often and if your time is changed the preop area will call you the afternoon before. - You and your visitor will be asked to self-screen and do not enter if you have any COVID symptoms. - A mask is optional within the hospital at this time. Patients may have clear liquids (water, carbonated beverages, clear teas, apple juice) until 3 hours prior to surgery (0430 AM) with a maximum of 20 ounces. - No food from midnight until time of surgery - Infants may have breast milk until 4 hours before surgery, formula 6 hours prior to surgery. - Children will be allowed to drink immediately following surgery. If applicable, please bring a bottle or sippy cup to assist with drinking. Juice, water, soda, and popsicles are readily available. For infants on formula, please bring formula the day of surgery. Pacifiers are allowed. Take the following medications with a SIP of water the morning of surgery: _LEVOTHYROXINE__ DO NOT STOP ANY OF YOUR OTHER PRESCRIPTION MEDICATIONS PRIOR TO SURGERY ?EXCEPT THE FOLLOWING Medications to discontinue per physician __PT STATES TO CONTINUE ASPIRIN PER DR. PENA.__ Date to take last dose Please no make-up, nail citizen [place], hairspray, perfume, deodorant, or body powder the day of surgery. No jewelry (including any body piercings) or valuables the day of surgery, leave them at home. Please take a shower or bath the night before, or the morning of, surgery with an antibacterial soap. Wear comfortable, loose fitting clothing. Children are encouraged to wear pajamas. - Jewelry must be removed prior to entering the operating room. Rings and piercings that are not removed may be cut off. - The hospital will not accept responsibility for valuables. - Please leave all valuables, including medications, at home the day of surgery. If you are going home after surgery, a licensed day haul or farm charter bus driver must drive you home. - NO public transportation without another adult if you receive anesthesia. - We recommend that an adult stay with you for 24 hours following discharge. - We also recommend that you do not drive, make important decision, drink alcoholic beverages, or take any drugs that were not prescribed by your health care provider for at least 24 hours after your discharge time. For Pediatric surgeries, we recommend two adults accompany the child home. Follow any additional instructions given to you from your surgeon. If you or anyone in your household have experienced Covid symptoms in the past week, please notify your surgeon or the nurse liaison at the phone number below for possible testing. Telephone instructions given to ___PT and asked if any additional questions and then verbalized understanding. Patient advised to call surgeon office or pre surgery nurse liaison [phone] if any additional questions.
--- NOTE | 2023-03-25 13:18 | PM.IMHP ---
H&P: HPI History of Present Illness Date/Time: 03/25/23 13:18 Chief Complaint: Right hip DJD Narrative: 88-year-old male presents today for an anterior right arthroplasty. Patient has been having symptoms in the right hip for the last 7 months. Pain started spontaneously following a long walk. He has had continued symptoms since that time. Pain is in the groin. He has pain with weight-bearing especially has pain with trying to sleep at night. He has been resting it and using a walker on regular basis without improvement of his symptoms. He did have an MRI scan which showed some chondral edema in the femoral head earlier this year. He has had progression of the arthritis in the hip to the point now where is down to less than a mm joint space remaining with prominent cystic changes in the femoral head. Prior to the onset of the symptoms patient was a very active individual and traveled regularly. He feels that the pain is not improving and rather proceed with total hip arthroplasty rather continue nonsurgical treatment Review of Systems Review of Systems: All systems reviewed & are unremarkable except as noted in HPI and below PMFSH Past Medical History Medical History Anemia, chronic disease Benign essential hypertension BMI 36.0-36.9,adult BMI 37.0-37.9, adult BPH (benign prostatic hyperplasia) CKD (chronic kidney disease) DM type 2 (diabetes mellitus, type 2) Elevated homocysteine Encounter for Medicare annual wellness exam Encounter for routine adult health examination without abnormal findings Hemoglobin A1c less than 7.0% 01/08/21 A1C= 6.0 Hx of syncope Hyperlipidemia Hypothyroidism (acquired) On intermodal owner operator truck driver drug therapy Overactive bladder Rupture of left proximal biceps tendon Ventricular hypertrophy Vitamin D deficiency Surgical History Surgical History History of total bilateral knee replacement Social History Social History Smoking status: Never smoker Second hand tobacco smoke exposure: No Additional smoking assessment comments: PT DENIES ALL FORMS OF TOBACCO USE Alcohol intake: current Alcohol use details: RARELY - GLASS WINE EVERY 2-3 MONTHS Substance use: never Substance use type: does not use Lack of Transportation: No Lack of Food: Never True Current Housing: I Have Housing Concerned About Future Housing: No Difficulty Paying Gas/Electric Bills: No Difficulty Paying for Meds: No Currently Unemployed: No Education: Master's Degree or Higher Difficulty w/ Childcare or Family Care: No Living arrangements: with family Occupation/Education: retired Gender identity (if verbalized by the patient): Male Spiritual care concerns: No Meds Home Medications and Allergies Home Medications Medication Instructions Recorded Confirmed Type folic acid 400 mcg tablet 0.4 mg PO DAILY #1 tablet 12/08/19 03/23/23 Rx aspirin 81 mg tablet,delayed 81 mg PO DAILY 01/21/21 03/23/23 History release (Adult Aspirin Regimen) witch shayla 50 % topical pads 1 pad topical BID PRN skin 07/02/21 03/23/23 Rx (Tucks (witch shayla)) irritation #40 ea vibegron 75 mg tablet (Gemtesa) 75 mg PO DAILY 03/16/22 03/23/23 History lancets (Accu-Chek Softclix #100 ea 06/15/22 03/23/23 Rx Lancets) blood sugar diagnostic (OneTouch #100 strips 11/30/22 03/23/23 Rx Ultra Test strips) calcium carbonate 600 mg-vitamin 1 cap PO DAILY 12/14/22 03/23/23 History D3 10 mcg (400 unit) capsule atorvastatin 80 mg tablet See Rx Instructions .Route 01/08/23 03/23/23 Rx .COMPLEX #90 tabs alfuzosin 10 mg tablet,extended See Rx Instructions .Route 02/09/23 03/23/23 Rx release 24 hr .COMPLEX #90 tabs pioglitazone 15 mg tablet See Rx Instructions .Route 02/09/23 03/23/23 Rx .COMPLEX #90 tabs repaglinide 0.5 mg tablet See Rx Instru
--- NOTE | 2023-04-01 09:15 | PC.NURSE ---
Report to the Outpatient Waiting Room, entrance under the green pavilion located off [facility], at time ___0600____ on date __04/12/23 . Planned Procedure Time: ___729 . Time changes happen often and if your time is changed the preop area will call you the afternoon before. - You and your visitor will be asked to self-screen and do not enter if you have any COVID symptoms. - A mask is optional within the hospital at this time. Patients may have clear liquids (water, carbonated beverages, clear teas, apple juice) until 3 hours prior to surgery (0430 AM) with a maximum of 20 ounces. - No food from midnight until time of surgery - Infants may have breast milk until 4 hours before surgery, infant formula 6 hours prior to surgery. - Children will be allowed to drink immediately following surgery. If applicable, please bring a bottle or sippy cup to assist with drinking. Juice, water, soda, and popsicles are readily available. For infants on formula, please bring formula the day of surgery. Pacifiers are allowed. Take the following medications with a SIP of water the morning of surgery: LEVOTHYROXINE DO NOT STOP ANY OF YOUR OTHER PRESCRIPTION MEDICATIONS PRIOR TO SURGERY ?EXCEPT THE FOLLOWING Medications to discontinue per physician __PT STATES TO CONTINUE ASPIRIN PER DR. PENA____ Date to take last dose Please no make-up, nail [place], hairspray, perfume, deodorant, or body powder the day of surgery. No jewelry (including any body piercings) or valuables the day of surgery, leave them at home. Please take a shower or bath the night before, or the morning of, surgery with an antibacterial soap. Wear comfortable, loose fitting clothing. Children are encouraged to wear pajamas. - Jewelry must be removed prior to entering the operating room. Rings and piercings that are not removed may be cut off. - The hospital will not accept responsibility for valuables. - Please leave all valuables, including medications, at home the day of surgery. If you are going home after surgery, a licensed trolley coach driver must drive you home. - NO public transportation without another adult if you receive anesthesia. - We recommend that an adult stay with you for 24 hours following discharge. - We also recommend that you do not drive, make important decision, drink alcoholic beverages, or take any drugs that were not prescribed by your health care provider for at least 24 hours after your discharge time. For Pediatric surgeries, we recommend two adults accompany the child home. Follow any additional instructions given to you from your surgeon. If you or anyone in your household have experienced Covid symptoms in the past week, please notify your surgeon or the nurse liaison at the phone number below for possible testing. Telephone instructions given to ____PT and asked if any additional questions and then verbalized understanding. Patient advised to call surgeon office or pre surgery nurse liaison [phone] if any additional questions.
[2023-04-12] VITALS (13 sets, daily range): BP systolic 101–133; BP diastolic 58–81; PULSE 70–102; RESP 12–20; TEMP 35.6–37.1; O2SAT 97–100
[2023-04-12] MEDS: ACETAMINOPHEN 500 MG TABLET 1000 MG PO ×3 (06:35→17:18)
[2023-04-12 06:38] LABS: Glucose Point of Care 102 mg/dl (65-105)
[2023-04-12] MEDS: LACTATED RINGERS 1,000 ML 30 ML IV CONT ×2 (06:40→11:24)
--- NOTE | 2023-04-12 06:49 | WPDANESEPPF ---
Anes - Initial Pre Proc Eval Procedure: Operation Date: 04/12/23 07:30 Proposed Procedures p Right Total Hip Arthroplasty Anterior Approach - Jonas Mckeon MD Date/Time: 04/12/23 06:49 Surgeon: Jonas Mckeon MD Pre Op Diagnosis: oa right hip Patient Data Age: 88 Gender: M Height: 1.66 m Weight: 100.6 kg Last Vital Signs Temp 36.9 C 03/23/23 12:10 Pulse 72 03/23/23 12:10 Resp 20 03/23/23 12:10 BP 128/80 03/23/23 12:10 Pulse Ox 98 03/23/23 12:10 O2 Del Method Room Air 03/23/23 12:10 Allergies Allergy/AdvReac Type Severity Reaction Status Date / Time ciprofloxacin Allergy Unknown Rash Verified 04/12/23 06:54 Penicillins Allergy Unknown DEVELOPED Verified 04/12/23 06:54 RED SPOT Sulfa (Sulfonamide Allergy Unknown RED SPOT Verified 04/12/23 06:54 Antibiotics) sulfa Allergy Unknown RED SPOT Uncoded 04/12/23 06:54 Home Medications Medication Instructions Recorded Confirmed Type aspirin 81 mg tablet,delayed 81 mg PO DAILY 01/21/21 04/12/23 History release (Adult Aspirin Regimen) witch shayla 50 % topical pads 1 pad topical BID PRN skin 07/02/21 03/29/23 Rx (Tucks (witch shayla)) irritation #40 ea vibegron 75 mg tablet (Gemtesa) 75 mg PO DAILY 03/16/22 04/12/23 History lancets (Accu-Chek Softclix #100 ea 06/15/22 03/29/23 Rx Lancets) calcium carbonate 600 mg-vitamin 1 cap PO DAILY 12/14/22 04/12/23 History D3 10 mcg (400 unit) capsule atorvastatin 80 mg tablet See Rx Instructions .Route 01/08/23 04/12/23 Rx .COMPLEX #90 tabs alfuzosin 10 mg tablet,extended See Rx Instructions .Route 02/09/23 04/12/23 Rx release 24 hr .COMPLEX #90 tabs pioglitazone 15 mg tablet See Rx Instructions .Route 02/09/23 04/12/23 Rx .COMPLEX #90 tabs lisinopril 20 mg tablet 20 mg PO DAILY #90 tabs 02/24/23 04/12/23 Rx levothyroxine 50 mcg tablet See Rx Instructions .Route 03/23/23 04/12/23 Rx .COMPLEX #90 tabs nystatin 100,000 unit/gram topical 1 applic topical TID PRN Skin 03/23/23 04/12/23 History powder Irritation repaglinide 0.5 mg tablet See Rx Instructions .Route BID 03/26/23 04/01/23 Rx #180 tabs blood sugar diagnostic (OneTouch 03/29/23 History Ultra Test strips) folic acid 400 mcg tablet 0.4 mg PO .COMPLEX 03/29/23 04/12/23 History Laboratory Tests 04/12/23 06:36 POC Capillary Glucose 102 mg/dl (65-105) Patient hx anesthesia problems: none Family hx anesthesia problems: none Results Review: All pre-operative results and documents have been reviewed as part of the pre-operative evaluation. [facility] Past Medical History Medical History Anemia, chronic disease Benign essential hypertension BMI 36.0-36.9,adult BMI 37.0-37.9, adult BPH (benign prostatic hyperplasia) CKD (chronic kidney disease) DM type 2 (diabetes mellitus, type 2) Elevated homocysteine Encounter for Medicare annual wellness exam Encounter for routine adult health examination without abnormal findings Hemoglobin A1c less than 7.0% 01/08/21 A1C= 6.0 Hx of syncope Hyperlipidemia Hypothyroidism (acquired) On shelter drug therapy Overactive bladder Rupture of left proximal biceps tendon Ventricular hypertrophy Vitamin D deficiency Surgical History Surgical History History of total bilateral knee replacement Social History Social History Smoking status: Never smoker Second hand tobacco smoke exposure: No Additional smoking assessment comments: PT DENIES ALL FORMS OF TOBACCO USE Alcohol intake: current Alcohol use details: RARELY - GLASS WINE EVERY 2-3 MONTHS Substance use: never Substance use type: does not use Lack of Transportation: No Lack of Food: Never True Current Housing: I Have Housing Concerned About Future Housing: No Difficulty Paying Gas/Electric Bills: No
--- NOTE | 2023-04-12 07:13 | WPDHPUPDATE1 ---
History and Physical Update Update Date/Time: 04/12/23 07:13 History and Physical has been reviewed, including an updated exam of the patient. There are NO changes in the patient's condition. Risks, benefits, and alternatives have been discussed and questions answered. Patient agrees to proceed with procedure.
[2023-04-12] MEDS: TRANEXAMIC ACID 1,000MG/ISO100 1,000 MG/100 ML BAG 200 MG IVPB (07:18)
[2023-04-12] MEDS: ceFAZolin 2 GM/D5W 50 ML 2 GM/50 ML BAG IVPB (07:33)
[2023-04-12] MEDS: ceFAZolin SODIUM 1 GM VIAL 3 GM (08:25)
[2023-04-12] MEDS: TRANEXAMIC ACID 1,000 MG/10 ML AMPUL 1000 MG IV PUSH (10:45)
[2023-04-12] MEDS: ceFAZolin SODIUM 1 GM VIAL 2 GM IV PUSH (10:45)
--- NOTE | 2023-04-12 11:00 | SUR.OPER ---
Cell Saver: 125 mls own blood returned to patient.
[2023-04-12 11:31] LABS: Glucose Point of Care 204 mg/dl (65-105)
--- NOTE | 2023-04-12 11:33 | PM.OP ---
Procedure Note - Brief Procedure Note - Brief Date of procedure: 04/12/23 oa right hip Procedure performed: Right anterior total hip arthroplasty Surgeon: CASTRO So Findings: 88-year-old male who underwent right anterior total hip arthroplasty on 04/12. Was involved in the procedure including positioning the patient on the or table and 1st assisting through the time of surgery. Total time spent was 4 hours
--- NOTE | 2023-04-12 11:47 | W.PM.PROC2 ---
Procedure Note - Detailed Date of Procedure 04/12/23 Pre-op Diagnosis oa right hip Post-op Diagnosis Same Procedure Performed Direct anterior approach right total hip arthroplasty Surgeon Jonas Mckeon MD Tester Regulator Nicole Anesthesia General Description of Procedure Patient was brought to the operating room and general anesthesia was administered. He received 2 g of Ancef weight based vancomycin 1 g of tranexamic acid preoperatively. He was placed on the OSI table after application of padding to the feet and application boots and SCDs were applied and running during the procedure. The right hip was prepped draped usual fashion. A 10 cm longitudinal incision was made starting about 3 cm lateral and 1 cm distal to the ASIS. Dissection was carried down to the fascia over the tensor fascia dominique which was longitudinally incised. This was elevated off the anterior 50% of the TFL and we could visualize the lateral femoral cutaneous nerve at the proximal end under the fascial flap. This protected throughout the procedure. Interval between tensor fascia dominique and rectus femoris developed and crossing branches of ascending lateral femoral circumflex vessels were ligated with suture divided. Retractor was placed anterior to the capsule and hip abducted internally rotated the gluteus minimus elevated the lateral capsule. Inverted T capsulotomy was made and femoral neck osteotomy made according to preoperative templating. Femoral head measured 49 mm in diameter. The acetabulum was exposed. The labrum excised. The acetabulum was quite shallow. Residual articular cartilage was curetted. Leg was then externally rotated and extended at the hip and the interval between conjoined tendon and piriformis incised which allowed the piriformis to flipped with minimal recession of the conjoined tendon. With the leg back in the horizontal position traction the acetabulum was exposed and medialized with the 42 mm to the medial wall and we reamed up from 47 x 1 mm increments to 49 and we could see the 50 was going to be the proper size and light reaming with a 50 Reamer was performed. The 50 trial for the Depuy emphasis cup had a nice fit. The real 50 emphasis cup was impacted into position and fully seated with a nice press fit. This was placed at 40? of abduction and anteversion such that the anterior shell was a mm under the anterior rim of the acetabulum this left the posterior shell about 4 mm proud. A single screw was placed in the ilium with excellent fixation. The 36 inner diameter liner was placed. With the table hook utilized the leg was externally rotated extended the proximal femur exposed we broached up to a size 5 ft seemed to be solid with respect to torsional stability. We trialed and the +5 and standard offset lengthened him a bit. We countersunk the broach 3 mm and a +5 was unstable. We switched to the high offset and the 1.5 and this was appropriate with respect to soft tissue stability and leg lengths much better. His preoperative x-rays showed that the lesser trochanter made the right leg appear long preoperatively relative to align comparing the lesser is going across the inferior rewind operator foramina. There was appropriate stability. One last time checked the torsional stability of the 1.5. His bone quality was excellent so I did not feel reluctant to applied the normal amount of torque to a sets stem stability and we could see there is a little bit of wiggle with back and forth torquing of the stem therefore we impacted the size 6 stem to the same level and this was rock-solid. On trialing 1 more time I did trial with the-2 head on the high offset since the 6 stem gains 2 mm of offset 1 mm length but this was too loose. We finished the calcar planing process and inserted the size 6 high offset Actis stem which gave a nice tight fit. It seated all the way. We trialed again and the-2 was too loose. With the Shuck maneuver the head would not fully seat i
--- NOTE | 2023-04-12 12:05 | SUR.PHASEI ---
Spoke to Dr. Mckeon regarding patient's need for personnel monitor once admitted to med/surg. Dr. Mckeon stated patient needed to have it and he did not feel comfortable discontinuing the order.
[2023-04-12] MEDS: fentaNYL CITRATE INJ (*CRX) 100 MCG/2 ML VIAL 25 MCG IV PUSH ×3 (12:10→12:26)
--- NOTE | 2023-04-12 13:43 | P.CONS_ITS ---
Assessment and Plan Assessment and plan (1) Arthritis of right hip: Code(s): M16.11 - Unilateral primary osteoarthritis, right hip Status: Acute Assessment and Plan: Postoperative day 0 status post direct anterior approach right total hip arthroplasty. Wound care, pain control, and DVT prophylaxis deferred to Dr. Mckeon. 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 Agree with PT/OT. (2) Type 2 diabetes mellitus: Code(s): E11.9 - Type 2 diabetes mellitus without complications Status: Acute Assessment and Plan: Hemoglobin A1c was 5.7% on 03/22/2023. Resume oral diabetes medication once tolerating diet. Initiate sliding scale insulin, Accu-Cheks, and hypoglycemic protocol. (3) Benign essential hypertension: Code(s): I10 - Essential (primary) hypertension Status: Acute Assessment and Plan: Blood pressures were reviewed and they have been stable postoperatively. Antihypertensives will be reviewed and resumed as appropriate. (4) Hyperlipidemia: Qualifiers: Hyperlipidemia type: mixed hyperlipidemia Qualified Code(s): E78.2 - Mixed hyperlipidemia Code(s): E78.5 - Hyperlipidemia, unspecified Status: Acute Assessment and Plan: Continue atorvastatin 80 mg daily. Check LFTs in a.m. (5) Chronic kidney disease: Code(s): N18.9 - Chronic kidney disease, unspecified Status: Acute Assessment and Plan: Baseline creatinine between 1.5 and 1.60. Check BMP in a.m. (6) Hypothyroidism: Code(s): E03.9 - Hypothyroidism, unspecified Status: Acute Assessment and Plan: TSH was 2.150 on 03/22/2023. Continue levothyroxine. (7) Chronic anemia: Code(s): D64.9 - Anemia, unspecified Status: Acute Assessment and Plan: Baseline hemoglobin is around 12 g. Estimated blood loss of 400 mL during surgery. Monitor monitor hemoglobin and hematocrit. (8) Benign prostatic hyperplasia: Code(s): N40.0 - Benign prostatic hyperplasia without lower urinary tract symptoms Status: Acute Assessment and Plan: Monitor for urinary retention postoperatively. Bladder scan as needed. Continue alfuzosin and vibegron. Plan Thank you for allowing us to participate in this patient's care. Please do not hesitate to contact us with any questions. HPI Data of Consult Date/Time: 04/12/23 15:30 Requesting Physician: Jonas Mckeon MD Consult Narrative Reason for consult: Medical management. Narrative: This is a very pleasant 88-year-old male osteoarthritis, hypertension, hyperlipidemia, benign prostatic hyperplasia, type 2 diabetes mellitus, and history of
--- NOTE | 2023-04-12 13:43 | WPDCN ---
Assessment and Plan Assessment and plan (1) Arthritis of right hip: Code(s): M16.11 - Unilateral primary osteoarthritis, right hip Status: Acute Assessment and Plan: Postoperative day 0 status post direct anterior approach right total hip arthroplasty. Wound care, pain control, and DVT prophylaxis deferred to Dr. Mckeon. 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 Agree with PT/OT. (2) Type 2 diabetes mellitus: Code(s): E11.9 - Type 2 diabetes mellitus without complications Status: Acute Assessment and Plan: Hemoglobin A1c was 5.7% on 03/22/2023. Resume oral diabetes medication once tolerating diet. Initiate sliding scale insulin, Accu-Cheks, and hypoglycemic protocol. (3) Benign essential hypertension: Code(s): I10 - Essential (primary) hypertension Status: Acute Assessment and Plan: Blood pressures were reviewed and they have been stable postoperatively. Antihypertensives will be reviewed and resumed as appropriate. (4) Hyperlipidemia: Qualifiers: Hyperlipidemia type: mixed hyperlipidemia Qualified Code(s): E78.2 - Mixed hyperlipidemia Code(s): E78.5 - Hyperlipidemia, unspecified Status: Acute Assessment and Plan: Continue atorvastatin 80 mg daily. Check LFTs in a.m. (5) Chronic kidney disease: Code(s): N18.9 - Chronic kidney disease, unspecified Status: Acute Assessment and Plan: Baseline creatinine between 1.5 and 1.60. Check BMP in a.m. (6) Hypothyroidism: Code(s): E03.9 - Hypothyroidism, unspecified Status: Acute Assessment and Plan: TSH was 2.150 on 03/22/2023. Continue levothyroxine. (7) Chronic anemia: Code(s): D64.9 - Anemia, unspecified Status: Acute Assessment and Plan: Baseline hemoglobin is around 12 g. Estimated blood loss of 400 mL during surgery. Monitor monitor hemoglobin and hematocrit. (8) Benign prostatic hyperplasia: Code(s): N40.0 - Benign prostatic hyperplasia without lower urinary tract symptoms Status: Acute Assessment and Plan: Monitor for urinary retention postoperatively. Bladder scan as needed. Continue alfuzosin and vibegron. Plan Thank you for allowing us to participate in this patient's care. Please do not hesitate to contact us with any questions. HPI Data of Consult Date/Time: 04/12/23 15:30 Requesting Physician: Jonas Mckeon MD Consult Narrative Reason for consult: Medical management. Narrative: This is a very pleasant 88-year-old male osteoarthritis, hypertension, hyperlipidemia, benign prostatic hyperplasia, type 2 diabetes mellitus, and history of DVT following bilateral knee replacement many years ago who the hospitalist been consulted managing his medical conditions postoperatively. He has had longstanding pain in his right hip which has not been amenable to conservative outpatient treatment and he elected for replacement today. Surgery was performed under general anesthesia with no immediate complications documented and an estimated blood loss of 400 mL. Postoperatively he has done quite well and has gotten up to the chair and around the room without much issue. He denies lightheadedness, dizziness, chest pain, shortness a breath, nausea, and vomiting. He also denies paresthesias, skin color, and temperature changes distal to the surgical site. Review of Systems Review of Systems: Twelve systems were reviewed. No cold or flu symptoms. No chest pain shortness a breath. Remote history of DVT following bilateral knee arthroplasty. Recent hemoglobin A1c was 5.8% and he had a decrease in some of his medications. He has not had any recent lows. Glucose was over 200 postoperatively in this very unusual for him. Except as documented, all other systems were reviewed and are negative. [facility] Past Medical History Medical
[2023-04-12] MEDS: oxyCODONE HCL (*CRX) 2.5 MG TAB IR PO ×3 (14:42→20:37)
[2023-04-12] MEDS: SODIUM CHLORIDE 0.9% IV 1,000 ML 125 ML IV CONT (14:42)
[2023-04-12] MEDS: PIOGLITAZONE HCL 15 MG TAB BY MOUTH (14:42)
[2023-04-12] MEDS: INSULIN ASPART (*BKC) 100 UNITS/ML SUB-Q (16:50)
[2023-04-12] MEDS: SENNA/DOCUSATE SODIUM TABLET 2 TAB PO (16:50)
[2023-04-12] MEDS: ceFAZolin 1 GM/NS 50 ML 1 GM/50 ML BAG IVPB (16:50)
[2023-04-12 16:51] LABS: Glucose Point of Care 201 mg/dl (65-105)
[2023-04-12] MEDS: VANCOMYCIN 1,000 MG/NS 250 ML 1,000 MG/250 ML BAG 250 MG IVPB (18:38)
[2023-04-12] MEDS: FAMOTIDINE 20 MG TABLET PO (20:37)
[2023-04-12 21:14] LABS: Glucose Point of Care 169 mg/dl (65-105)
[2023-04-13] VITALS (10 sets, daily range): BP systolic 96–122; BP diastolic 56–68; PULSE 72–98; RESP 14–18; TEMP 36.3–36.8; O2SAT 98–100
--- NOTE | ~2023-04-13 | XR_ITS ---
EXAMINATION: XR surgery orthopedic DATE: 04/12/2023 10:58 INDICATION: Right hip arthroplasty TECHNIQUE: Single fluoroscopic AP view right hip. 57 seconds of fluoroscopy. FINDINGS: There is a right total hip arthroplasty in expected position, partially visualized. Subcut aneous gas with soft tissue swelling are consistent with recent surgery. IMPRESSION: 1. Recent right total hip arthroplasty. Reviewed, dictated and finalized at location B. SION ORDER ANALYST
--- NOTE | ~2023-04-13 | XR_ITS ---
EXAMINATION: XR hip RT 1V w AP pelvis DATE: 04/12/2023 11:21 INDICATION: Right total hip arthroplasty TECHNIQUE: 2 views right hip FINDINGS: There is a right total hip arthroplasty in expected position. Subcutaneous gas with soft t issue swelling are consistent with recent surgery. IMPRESSION: 1. Recent right total hip arthroplasty. Reviewed, dictated and finalized at location B. ESSOR OF PATHOLOGY
[2023-04-13] MEDS: ACETAMINOPHEN 500 MG TABLET 1000 MG PO ×4 (00:25→18:46)
[2023-04-13] MEDS: ceFAZolin 1 GM/NS 50 ML 1 GM/50 ML BAG IVPB ×2 (00:25→08:53)
[2023-04-13] MEDS: oxyCODONE HCL (*CRX) 2.5 MG TAB IR PO ×6 (00:25→20:05)
[2023-04-13] MEDS: LEVOTHYROXINE SODIUM 50 MCG TABLET BY MOUTH (05:36)
[2023-04-13] MEDS: VANCOMYCIN 1,000 MG/NS 250 ML 1,000 MG/250 ML BAG 250 MG IVPB (06:07)
--- NOTE | 2023-04-13 06:34 | PM.PNORT ---
Progress Note: A&P Assessment and Plan (1) Arthritis of right hip: Code(s): M16.11 - Unilateral primary osteoarthritis, right hip Status: Acute Assessment and Plan: Patient is postop day 1. After right total hip arthroplasty. Systolic pressure was 100 this morning otherwise vital signs stable. Heart rate in the 70s. Labs are not available yet. He has chronic kidney disease and we need to make sure he has not had elevation of his creatinine. He has urinated twice during the night. He has been out of bed and has taken some steps in the room has tolerated this. With his chronic preoperative anemia and chronic kidney disease, and his lower blood pressure today, I think it would be unsafe to discharge him as an outpatient today and I would recommend that we continue to observe him at least 1 more night and so we will make him a formal admission. Clearly it would be unsafe to discharge him home today. His hemoglobin is likely trough between today and tomorrow as well and he may require transfusion. Subjective Subjective Date/Time Seen: 04/13/23 06:34 Objective Data Vital Signs Vital Signs: Vital Signs - 24 hr 04/12/23 07:00 04/12/23 11:24 04/12/23 11:40 Temperature 36.2 C L 37.0 C Pulse Rate 76 74 73 Respiratory Rate 16 12 12 Blood Pressure 129/81 111/58 L 114/64 Pulse Oximetry 97 100 100 Oxygen Delivery Room Air Simple Face Mask Simple Face Mask Oxygen Flow Rate 8 8 04/12/23 11:55 04/12/23 12:10 04/12/23 12:25 Temperature Pulse Rate 72 71 70 Respiratory Rate 16 12 18 Blood Pressure 110/67 114/71 122/68 Pulse Oximetry 97 97 98 Oxygen Delivery Room Air Room Air Room Air Oxygen Flow Rate 04/12/23 12:50 04/12/23 13:05 04/12/23 13:35 Temperature 35.6 C L 35.7 C L 35.7 C L Pulse Rate 71 75 85 Respiratory Rate 20 20 18 Blood Pressure 127/73 133/66 116/59 L Pulse Oximetry 98 98 99 Oxygen Delivery Oxygen Flow Rate 04/12/23 14:48 04/12/23 14:35 04/12/23 16:00 Temperature 35.6 C L Pulse Rate 86 Respiratory Rate 20 Blood Pressure 102/64 Pulse Oximetry 98 Oxygen Delivery Room Air Room Air Oxygen Flow Rate 04/12/23 16:00 04/12/23 22:15 04/12/23 20:00 Temperature 37.1 C Pulse Rate 102 H 74 84 Respiratory Rate 18 Blood Pressure 101/71 Pulse Oximetry 98 Oxygen Delivery Oxygen Flow Rate 04/13/23 00:00 04/13/23 02:23 04/13/23 04:00 Temperature 36.8 C Pulse Rate 83 76 72 Respiratory Rate 16 Blood Pressure 122/68 Pulse Oximetry 98 Oxygen Delivery Oxygen Flow Rate 04/13/23 06:19 Temperature 36.5 C Pulse Rate 73 Respiratory Rate 18 Blood Pressure 100/63 Pulse Oximetry 99 Oxygen Delivery Oxygen Flow Rate Intake/Output Intake/Output: Intake & Output 04/10/23 04/11/23 04/12/23 04/13/23 23:59 23:59 23:59 23:59 Intake Total 2890 450 Output Total 90 15 Balance 2800 435 Meds/Results Medications: Active Medications Generic Name Dose Route Start Last Admin Trade Name Freq PRN Reason Stop Dose Admin Acetaminophen 1,000 mg 04/12/23 13:00 04/13/23 05:36 Acetaminophen 500 Mg Tablet PO 1,000 mg Q6HR [facility] Administration Alfuzosin HCl 10 mg 04/12/23 12:50 04/12/23 14:40 Alfuzosin 10 Mg Er Tablet BY MOUTH 10 mg DAILY [facility] Administration Apixaban 2.5 mg 04/13/23 09:00 Apixaban 2.5 Mg Tablet PO Q12HR [facility] Aspirin 81 mg 04/13/23 09:00 Aspirin 81 Mg Enteric Tablet PO DAILY [facility] Atorvastatin Calcium 80 mg 04/13/23 09:00 Atorvastatin 40 Mg Tablet BY MOUTH DAILY [facility] Cefdinir 300 mg 04/13/23 09:00 Cefdinir 300 Mg Capsule PO Q12HR [facility] Dextrose 12.5 gm 04/12/23 13:59 Dextrose 50% 25 Gm/50 Ml Syringe IV PUSH PRN PRN Hypoglycemia Protocol Famotidine 20 mg 04/12/23 21:00 04/12/23 20:37 Famotidine 20 Mg Tablet PO 20 mg Q12HR [facility] Administration Folic Acid 0.4 mg 04/13/23 09:00 Folic Acid 0.4 Mg Tablet PO
[2023-04-13 06:48] LABS: Basophils Percent Auto 0.2 % (0.2-1.2); Eosinophils Percent Auto 0.1 % (0-4.4); Hematocrit 26.5 % (42.0-52.0); Hemoglobin 8.4 g/dL (14.0-18.0); Immature Granulocyte Absolute 0.06 K/mm3 (0.00-0.031); Immature Granulocyte Percent A 0.5 % (0-0.5); Lymphocytes Absolute Auto 1.44 K/mm3 (0.9-3.2); Lymphocytes Percent Auto 12.2 % (18.3-44.2); Mean Corpuscular HGB Conc 31.7 g/dl (32-36); Mean Corpuscular Hemoglobin 30.9 pg (26-34); Mean Corpuscular Volume 97.4 fl (80-100); Mean Platelet Volume 9.9 fl (7.4-10.4); Monocytes Absolute Auto 1.2 K/mm3 (0.1-0.6); Monocytes Percent Auto 10.3 % (2.6-8.5); Neutrophils Percent Auto 76.7 % (45.5-73.1); Platelet Count Result 206 k/mm3 (150-375); Red Blood Count 2.72 M/mm3 (4.6-6.20); Red Cell Distribution Width 14.3 % (11.5-14.5); White Blood Count 11.8 K/mm3 (4.5-10.0)
[2023-04-13 07:23] LABS: Alanine Aminotransferase 14 U/L (6-50); Albumin Level 2.8 g/dL (3.5-5.1); Alkaline Phosphatase 38 U/L (38-126); Anion Gap 6 mmol/L (8-16); Aspartate Amino Transferase 45 U/L (17-59); Bilirubin,Total 0.6 mg/dL (0.2-1.3); Blood Urea Nitrogen 34 mg/dL (9-20); Calcium 7.6 mg/dL (8.4-10.2); Carbon Dioxide 22 mmol/L (22-30); Chloride 104 mmol/L (98-107); Estimated CRCL calculation 30 ml/min; Estimated Glomerular Filt Rate 36; Glucose 117 mg/dL (65-110); Magnesium 1.7 mg/dL (1.6-2.3); Potassium 4.4 mmol/L (3.4-5.0); Sodium 132 mmol/L (137-145)
[2023-04-13 07:37] LABS: Glucose Point of Care 125 mg/dl (65-105)
[2023-04-13] MEDS: NEOMYCIN/POLYMYXIN/BACITRACIN OINTMENT PACKET 1 PACKET (08:54)
[2023-04-13] MEDS: SODIUM CHLORIDE 0.9% IV 1,000 ML 50 ML IV CONT (08:54)
[2023-04-13] MEDS: ASPIRIN 81 MG ENTERIC TABLET PO (08:55)
[2023-04-13] MEDS: PIOGLITAZONE HCL 15 MG TAB BY MOUTH (08:55)
[2023-04-13] MEDS: CEFDINIR 300 MG CAPSULE PO ×2 (08:55→20:43)
[2023-04-13] MEDS: SENNA/DOCUSATE SODIUM TABLET 2 TAB PO ×2 (08:55→16:04)
[2023-04-13] MEDS: FAMOTIDINE 20 MG TABLET PO ×2 (08:56→20:43)
[2023-04-13] MEDS: ATORVASTATIN 40 MG TABLET 80 MG BY MOUTH (08:56)
[2023-04-13] MEDS: APIXABAN 2.5 MG TABLET PO ×2 (08:56→20:43)
[2023-04-13] MEDS: polyethylene glycoL 3350 17 GM POWD.PACK PO (08:56)
[2023-04-13] MEDS: FOLIC ACID 0.4 MG TABLET PO (09:01)
--- NOTE | 2023-04-13 09:19 | P.PNAN_ITS ---
Anes - Prog Note Post-Op Date/Time: 04/13/23 09:19 Cardiovascular status: normal Respiratory status: normal Airway patency: baseline Mental status: baseline Post-Op hydration status: normal Vital Signs: Last Vital Signs Temp 36.7 C 04/13/23 08:00 Pulse 72 04/13/23 08:00 Resp 18 04/13/23 08:00 BP 112/61 04/13/23 08:00 Pulse Ox 98 04/13/23 08:00 O2 Del Method Room Air 04/13/23 08:55 O2 Flow Rate 8 04/12/23 11:40 Pain Score (VAS): 07/24 I/O: Intake & Output 04/12/23 04/13/23 04/13/23 23:59 07:59 15:59 Intake Total 2040 450 240 Output Total 90 15 Balance 1950 435 240 Laboratory Tests 04/13/23 06:17 04/13/23 06:17 04/12/23 04/12/23 04/12/23 11:29 16:31 21:07 WBC RBC Hgb Hct MCV MCH MCHC RDW Plt Count MPV Immature Gran % (Auto) Neut % (Auto) Lymph % (Auto) [place] % (Auto) Eos % (Auto) Baso % (Auto) Lymph # (Auto) [place] # (Auto) Eos # (Auto) Baso # (Auto) Abs Immat Gran (auto) Absolute Neuts (auto) Absolute Nucleated RBC Nucleated RBC % Sodium Potassium Chloride Carbon Dioxide Anion Gap BUN Creatinine Estim Creat Clear Calc Estimated GFR Glucose POC Capillary Glucose 204 H 201 H 169 H Calcium Magnesium Total Bilirubin Direct Bilirubin AST ALT Alkaline Phosphatase Total Protein Albumin 04/13/23 04/13/23 06:17 07:28 WBC 11.8 H RBC 2.72 L Hgb 8.4 L D Hct 26.5 L MCV 97.4 MCH 30.9 MCHC 31.7 L RDW 14.3 Plt Count 206 MPV 9.9 Immature Gran % (Auto) 0.5 Neut % (Auto) 76.7 H Lymph % (Auto) 12.2 L [place] % (Auto) 10.3 H Eos % (Auto) 0.1 Baso % (Auto) 0.2 Lymph # (Auto) 1.44 [place] # (Auto) 1.2 H Eos # (Auto) 0.0 Baso # (Auto) 0.0 Abs Immat Gran (auto) 0.06 H Absolute Neuts (auto) 9.0 H Absolute Nucleated RBC 0.0 Nucleated RBC % 0.0 Sodium 132 L Potassium 4.4 Chloride 104 Carbon Dioxide 22 Anion Gap 6 L BUN 34 H Creatinine 1.80 H Estim Creat Clear Calc 30 Estimated GFR 36 L Glucose 117 H POC Capillary Glucose 125 H Calcium 7.6 L Magnesium 1.7 Total Bilirubin 0.6 Direct Bilirubin 0.0 AST 45 ALT 14 Alkaline Phosphatase 38 Total Protein 5.0 L Albumin 2.8 L Post-procedural complaints: none Patient Feedback: Patient satisfied with anesthetic care.
--- NOTE | 2023-04-13 10:56 | PM.CNNEP ---
Assessment and Plan Assessment and plan (1) Stage 3b chronic kidney disease: Code(s): N18.32 - Chronic kidney disease, stage 3b Status: Chronic Assessment and Plan: baseline creatinine runs ~ 1.4 - 1.8mg/dl since 2020 likely secondary to his diabetes, hypertension, vascular disease, and age-related change continue supportive care (2) Arthritis of right hip: Code(s): M16.11 - Unilateral primary osteoarthritis, right hip Status: Acute Assessment and Plan: s/p direct anterior approach right total hip arthroplasty Orthopedic following pain control local wound care PT/OT as tolerated (3) Benign essential hypertension: Code(s): I10 - Essential (primary) hypertension Status: Acute Assessment and Plan: reasonable control at this time BP medications with parameters follow trend of hemodynamics (4) Type 2 diabetes mellitus: Code(s): E11.9 - Type 2 diabetes mellitus without complications Status: Acute Assessment and Plan: follow accu-cheks glycemic control per hospitalists I will continue to follow the patient with you while she he remains hospitalized to make further recommendations as needed. Thank you for allowing me to participate in the care of this patient. History of Present Illness Reason for Consult Consult date: 04/13/23 Reason for consult: chronic renal failure Chief Complaint Chief complaint: oa right hip History of Present Illness Narrative: The patient is a 88-year-old male with a past medical history as outlined below who was admitted to [facility] status post right total hip arthroplasty. The patient has been having longstanding pain in his right hip which has not been amenable to conservative therapy which is included PT/OT as well as aggressive medical therapy. It was eventually deemed necessary that he require total hip replacement surgery which he underwent yesterday without any issues or problems. Since the surgery, he has done quite well with reasonable pain control and no other issues/complications. Renal consultation was requested due to his known history of chronic kidney disease. The patient is somewhat familiar to me as I gave operative clearance to proceed with his right total hip arthroplasty surgery despite is known history of chronic kidney disease. His baseline creatinine normally runs around 1.4-1.8 mg/dL over the last several years and is thought to be secondary to a combination of his hypertension, diabetes, vascular disease, and age-related change. His recent labs have demonstrated relative stability in his kidney function since his admission to the hospital yesterday. Currently, at the time my evaluation, he appears to be in no apparent distress. [facility] Past Medical History Medical History (Updated 05/05/23 @ 05:27 by Dane Fleming MD) Anemia of chronic disease Benign essential hypertension Benign prostatic hyperplasia Chronic kidney disease Deep venous thrombosis Following bilateral knee replacement. Hyperlipidemia Hypothyroidism Overactive bladder Type 2 diabetes mellitus Ventricular hypertrophy Vitamin D deficiency Surgical History Surgical History (Updated 04/12/23 @ 13:49 by Kiana Stafford PA-C) History of appendectomy History of arthroscopy of both knees History of bilateral cataract extraction History of loop recorder (05/2018) History of lumbar discectomy History of total bilateral knee replacement (05/2010) History of total right hip arthroplasty (04/12/23) History of vasectomy Family History Family History (Updated 04/12/23 @ 13:51 by Kiana Stafford PA-C) Other Family history non-contributory Social History Social History (Updated 04/12/23 @ 21:31 by Kiana Stafford PA-C) Social History: Surrogate medical decision maker: Dell (son) or Sneha (spouse) Jose L Russo. Code status: Full code. Smoking status: Never smoker Sec
[2023-04-13 11:17] LABS: Glucose Point of Care 155 mg/dl (65-105)
--- NOTE | 2023-04-13 11:52 | PHAR ---
HOME MED: Vibegron [Gemtesa] 75 mg tablet, TAKE 1 TABLET BY MOUTH DAILY. VERIFIED BY PHARMACY.
--- NOTE | 2023-04-13 15:43 | P.CONIM_ITS ---
Assessment and Plan Assessment and plan (1) Arthritis of right hip: Code(s): M16.11 - Unilateral primary osteoarthritis, right hip Status: Acute Assessment and Plan: Postoperative day 1 status post direct anterior approach right total hip arthroplasty. Wound care, pain control, and DVT prophylaxis deferred to Dr. Mckeon. 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 Agree with PT/OT. (2) Type 2 diabetes mellitus: Code(s): E11.9 - Type 2 diabetes mellitus without complications Status: Acute Assessment and Plan: Hemoglobin A1c was 5.7% on 03/22/2023. Resume oral diabetes medication. Initiate sliding scale insulin, Accu-Cheks, and hypoglycemic protocol. (3) Benign essential hypertension: Code(s): I10 - Essential (primary) hypertension Status: Acute Assessment and Plan: Blood pressures were reviewed and they have been stable but soft postoperatively. Antihypertensives will be reviewed and resumed as appropriate. (4) Hyperlipidemia: Qualifiers: Hyperlipidemia type: mixed hyperlipidemia Qualified Code(s): E78.2 - Mixed hyperlipidemia Code(s): E78.5 - Hyperlipidemia, unspecified Status: Acute Assessment and Plan: Continue atorvastatin 80 mg daily. LFTs WNL (5) Chronic kidney disease: Code(s): N18.9 - Chronic kidney disease, unspecified Status: Acute Assessment and Plan: Baseline creatinine between 1.5 and 1.60. Jumped to 1.80 this am. Nephrology consulted (6) Hypothyroidism: Code(s): E03.9 - Hypothyroidism, unspecified Status: Acute Assessment and Plan: TSH was 2.150 on 03/22/2023. Continue levothyroxine. (7) Chronic anemia: Code(s): D64.9 - Anemia, unspecified Status: Acute Assessment and Plan: Baseline hemoglobin is around 12 g. Estimated blood loss of 400 mL during surgery. Monitor hemoglobin and hematocrit. Consider transfusion if does not stabilize. (8) Benign prostatic hyperplasia: Code(s): N40.0 - Benign prostatic hyperplasia without lower urinary tract symptoms Status: Acute Assessment and Plan: Monitor for urinary retention postoperatively. Bladder scan as needed. Continue alfuzosin and vibegron. Plan Thank you for allowing us to participate in this patient's care. Please do not hesitate to contact us with any questions. HPI Date of Consult Consult date: 04/13/23 Requesting Physician: Jonas Mckeon MD Primary Care Provider: Chauncey Padron MD Consult Narrative Reason for consult: medical management Narrative: Patient is an 88 YO male with PMH of osteoarthritis, hypertension, hyp e
--- NOTE | 2023-04-13 15:43 | PM.IMCN ---
Assessment and Plan Assessment and plan (1) Arthritis of right hip: Code(s): M16.11 - Unilateral primary osteoarthritis, right hip Status: Acute Assessment and Plan: Postoperative day 1 status post direct anterior approach right total hip arthroplasty. Wound care, pain control, and DVT prophylaxis deferred to Dr. Mckeon. 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 Agree with PT/OT. (2) Type 2 diabetes mellitus: Code(s): E11.9 - Type 2 diabetes mellitus without complications Status: Acute Assessment and Plan: Hemoglobin A1c was 5.7% on 03/22/2023. Resume oral diabetes medication. Initiate sliding scale insulin, Accu-Cheks, and hypoglycemic protocol. (3) Benign essential hypertension: Code(s): I10 - Essential (primary) hypertension Status: Acute Assessment and Plan: Blood pressures were reviewed and they have been stable but soft postoperatively. Antihypertensives will be reviewed and resumed as appropriate. (4) Hyperlipidemia: Qualifiers: Hyperlipidemia type: mixed hyperlipidemia Qualified Code(s): E78.2 - Mixed hyperlipidemia Code(s): E78.5 - Hyperlipidemia, unspecified Status: Acute Assessment and Plan: Continue atorvastatin 80 mg daily. LFTs WNL (5) Chronic kidney disease: Code(s): N18.9 - Chronic kidney disease, unspecified Status: Acute Assessment and Plan: Baseline creatinine between 1.5 and 1.60. Jumped to 1.80 this am. Nephrology consulted (6) Hypothyroidism: Code(s): E03.9 - Hypothyroidism, unspecified Status: Acute Assessment and Plan: TSH was 2.150 on 03/22/2023. Continue levothyroxine. (7) Chronic anemia: Code(s): D64.9 - Anemia, unspecified Status: Acute Assessment and Plan: Baseline hemoglobin is around 12 g. Estimated blood loss of 400 mL during surgery. Monitor hemoglobin and hematocrit. Consider transfusion if does not stabilize. (8) Benign prostatic hyperplasia: Code(s): N40.0 - Benign prostatic hyperplasia without lower urinary tract symptoms Status: Acute Assessment and Plan: Monitor for urinary retention postoperatively. Bladder scan as needed. Continue alfuzosin and vibegron. Plan Thank you for allowing us to participate in this patient's care. Please do not hesitate to contact us with any questions. HPI Date of Consult Consult date: 04/13/23 Requesting Physician: Jonas Mckeon MD Primary Care Provider: Chauncey Padron MD Consult Narrative Reason for consult: medical management Narrative: Patient is an 88 YO male with PMH of osteoarthritis, hypertension, hyperlipidemia, benign prostatic hyperplasia, type 2 diabetes mellitus, and history of DVT following bilateral knee replacement many years ago who the hospitalist been consulted managing his medical conditions postoperatively. Surgery was performed yesterday under general anesthesia with no immediate complications documented and an estimated blood loss of 400 mL. Postoperatively he has done quite well and has gotten up to the chair and around the room without much issue. He denies lightheadedness, dizziness, chest pain, shortness a breath, nausea, and vomiting. He also denies paresthesias, skin color, and temperature changes distal to the surgical site. PT has been working with him and per ortho will keep him overnight to monitor his H&H and BP prior to d/c. Review of Systems Review of Systems: Twelve systems were reviewed. No cold or flu symptoms. No chest pain shortness a breath. Remote history of DVT following bilateral knee arthroplasty. Recent hemoglobin A1c was 5.8% and he had a decrease in some of his medications. He has not had any recent lows. Glucose was over 200 postoperatively in this very unusual for him. Except as documented, all other systems were reviewed and are nega
[2023-04-13] MEDS: Vibegron [Gemtesa] 75 mg tablet 75 EACH PO (16:04)
[2023-04-13 16:23] LABS: Glucose Point of Care 134 mg/dl (65-105)
[2023-04-13] MEDS: MORPHINE SULFATE (*CRX) 2 MG/ML INJ IV PUSH (18:49)
[2023-04-13 20:30] LABS: Glucose Point of Care 163 mg/dl (65-105)
[2023-04-14] VITALS: PULSE 77
[2023-04-14] MEDS: ACETAMINOPHEN 500 MG TABLET 1000 MG PO ×3 (01:40→13:14)
[2023-04-14] MEDS: oxyCODONE HCL (*CRX) 2.5 MG TAB IR PO ×4 (01:40→13:14)
[2023-04-14 04:00] VITALS: PULSE 69
[2023-04-14] MEDS: LEVOTHYROXINE SODIUM 50 MCG TABLET BY MOUTH (05:40)
[2023-04-14] MEDS: SODIUM CHLORIDE 0.9% IV 1,000 ML 50 ML IV CONT (05:40)
[2023-04-14 05:56] VITALS: BP 100/63; PULSE 70; RESP 14; TEMP 36.6; O2SAT 99
[2023-04-14 06:29] LABS: Basophils Percent Auto 0.1 % (0.2-1.2); Eosinophils Absolute Auto 0.1 K/mm3 (0-0.3); Eosinophils Percent Auto 1.1 % (0-4.4); Hematocrit 26.8 % (42.0-52.0); Hemoglobin 8.2 g/dL (14.0-18.0); Immature Granulocyte Absolute 0.05 K/mm3 (0.00-0.031); Immature Granulocyte Percent A 0.5 % (0-0.5); Lymphocytes Absolute Auto 1.74 K/mm3 (0.9-3.2); Lymphocytes Percent Auto 16.9 % (18.3-44.2); Mean Corpuscular HGB Conc 30.6 g/dl (32-36); Mean Corpuscular Hemoglobin 30.4 pg (26-34); Mean Corpuscular Volume 99.3 fl (80-100); Mean Platelet Volume 9.9 fl (7.4-10.4); Monocytes Absolute Auto 1.2 K/mm3 (0.1-0.6); Monocytes Percent Auto 11.2 % (2.6-8.5); Neutrophils Absolute Auto 7.2 K/mm3 (1.3-6.7); Neutrophils Percent Auto 70.2 % (45.5-73.1); Platelet Count Result 185 k/mm3 (150-375); Red Cell Distribution Width 14.1 % (11.5-14.5); White Blood Count 10.3 K/mm3 (4.5-10.0)
[2023-04-14 06:43] LABS: Albumin Level 1.9 g/dL (3.5-5.1); Anion Gap 6 mmol/L (8-16); Blood Urea Nitrogen 32 mg/dL (9-20); Calcium 7.5 mg/dL (8.4-10.2); Carbon Dioxide 23 mmol/L (22-30); Chloride 105 mmol/L (98-107); Estimated CRCL calculation 34 ml/min; Estimated Glomerular Filt Rate 41; Glucose 114 mg/dL (65-110); Phosphorus 3.1 mg/dL (2.5-4.5); Potassium 4.2 mmol/L (3.4-5.0); Sodium 134 mmol/L (137-145)
[2023-04-14 07:42] LABS: Glucose Point of Care 114 mg/dl (65-105)
[2023-04-14 08:01] VITALS: PULSE 73
[2023-04-14] MEDS: FAMOTIDINE 20 MG TABLET PO (09:44)
[2023-04-14] MEDS: ASPIRIN 81 MG ENTERIC TABLET PO (09:44)
[2023-04-14] MEDS: APIXABAN 2.5 MG TABLET PO (09:44)
[2023-04-14] MEDS: CEFDINIR 300 MG CAPSULE PO (09:44)
[2023-04-14] MEDS: ATORVASTATIN 40 MG TABLET 80 MG BY MOUTH (09:45)
[2023-04-14] MEDS: PIOGLITAZONE HCL 15 MG TAB BY MOUTH (09:45)
[2023-04-14] MEDS: SENNA/DOCUSATE SODIUM TABLET 2 TAB PO (09:45)
[2023-04-14] MEDS: polyethylene glycoL 3350 17 GM POWD.PACK PO (09:45)
[2023-04-14] MEDS: Vibegron [Gemtesa] 75 mg tablet 75 EACH PO (09:47)
[2023-04-14 11:14] LABS: Glucose Point of Care 147 mg/dl (65-105)
--- NOTE | 2023-04-14 11:56 | PM.DS ---
DS: Admitting Diagnosis Discharge Date 04/14/2023 Admitting Diagnosis OSTEOARTHRITIS RIGHT HIP DS: Summary Hospital Course Hospital Course: PATIENT UNDERWENT RIGHT TOTAL HIP ARTHROPLASTY DIRECT ANTERIOR APPROACH ON Wednesday. HIS POSTOP COURSE HAS BEEN FAIRLY UNEVENTFUL. HIS PREOP HEMOGLOBIN WAS ONLY 11.7. POSTOP DAY 1 YESTERDAY HE HAD DROPPED TO 8.4. HIS VITAL SIGNS HAVE BEEN STABLE HIS HEART RATE STEADY AT THE 70S. HE HAS BEEN AFEBRILE. CREATININE INCREASED TO 1.8 WHICH IS BEEN THE RANGE 1.4 TO 1.8 OVER THE LAST YEAR. WE DID HAVE NEPHROLOGY SEE HIM AND RECOMMENDED NO ADDITIONAL RECOMMENDATIONS. WE STARTED HIM ON 50 CC OF NORMAL SALINE IV FLUIDS YESTERDAY AND TODAY HIS CREATININE IS DOWN TO 1.6. IS HEMOGLOBIN IS STEADY AT 8.2. PLATELETS WITHIN NORMAL LIMITS. HE HAS BEEN COMPLETELY ALERT AND ORIENTED. HE HAS WALKED UP AND DOWN THE HALLWAYS WITH HIS WALKER WEIGHT-BEARING TOLERATED AND IS COMFORTABLE TODAY. HE IS EAGER TO RETURN HOME. I SPOKE TO HIS WELL HIS DAUGHTER AND THE PATIENT ABOUT DISCHARGE INSTRUCTIONS AND THE IMPORTANCE OF NOT SITTING IN A CHAIR VERY MUCH THIS WILL CAUSE SWELLING LEG HE DOES HAVE A HISTORY OF DVT AND IF HE DEVELOPS SWELLING THE LEG LEFT COLLES WILL OBTAIN A VENOUS DUPLEX ULTRASOUND. WE WILL ASK HOME HEALTH TO SEE HIM AT LEAST ON WEDNESDAY AND ADDITIONALLY NEEDED. HE WILL BE DISCHARGED ON ELIQUIS FOR DVT PROPHYLAXIS AND HIS OTHER MEDICATIONS LISTED. WE ARE NOT GOING TO USE MELOXICAM FOR HETEROTOPIC OSSIFICATION PROPHYLAXIS BECAUSE OF HIS KIDNEY FUNCTION AND WE WILL ASK THE BIG DATA ANALYTICS LEAD WHETHER HE WANTS HIM TO RESUME LISINOPRIL AT DISCHARGE. HE IS SCHEDULED TO SEE ME BACK IN THE OFFICE IN APPROXIMATELY 10 OR 12 DAYS. Time Spent with Patient Time attestation: Total time spent providing and/or coordinating discharge services: DS: Data Data Completed and Pending Labs on day of discharge: Labs from last 24 hours 04/14/23 04/14/23 04/14/23 11:06 07:35 06:09 WBC 10.3 H RBC 2.70 L Hgb 8.2 L Hct 26.8 L MCV 99.3 MCH 30.4 MCHC 30.6 L RDW 14.1 Plt Count 185 MPV 9.9 Immature Gran % (Auto) 0.5 Neut % (Auto) 70.2 Lymph % (Auto) 16.9 L Briscoe % (Auto) 11.2 H Eos % (Auto) 1.1 Baso % (Auto) 0.1 L Lymph # (Auto) 1.74 Briscoe # (Auto) 1.2 H Eos # (Auto) 0.1 Baso # (Auto) 0.0 Abs Immat Gran (auto) 0.05 H Absolute Neuts (auto) 7.2 H Absolute Nucleated RBC 0.0 Nucleated RBC % 0.0 Sodium 134 L Potassium 4.2 Chloride 105 Carbon Dioxide 23 Anion Gap 6 L BUN 32 H Creatinine 1.60 H Estim Creat Clear Calc 34 Estimated GFR 41 L Glucose 114 H POC Capillary Glucose 147 H 114 H Calcium 7.5 L Phosphorus 3.1 Albumin 1.9 L 04/13/23 04/13/23 20:14 16:14 WBC RBC Hgb Hct MCV MCH MCHC RDW Plt Count MPV Immature Gran % (Auto) Neut % (Auto) Lymph % (Auto) Briscoe % (Auto) Eos % (Auto) Baso % (Auto) Lymph # (Auto) Briscoe # (Auto) Eos # (Auto) Baso # (Auto) Abs Immat Gran (auto) Absolute Neuts (auto) Absolute Nucleated RBC Nucleated RBC % Sodium Potassium Chloride Carbon Dioxide Anion Gap BUN Creatinine Estim Creat Clear Calc Estimated GFR Glucose POC Capillary Glucose 163 H 134 H Calcium Phosphorus Albumin Discharge Plan Discharge Attending physician on discharge: Jonas Mckeon Consulting providers: Kraig Hernandes; Dane Fleming Discharging Clinician: Jonas Mckeon Anticipated Discharge Date/Time: 04/14/23 11:49 Patient Disposition: Home Health Service Activity: september shower Discharge Instructions: JONAS MCKEON M.D [facility] [address] [place] [id number] POST-OPERATIVE DISCHARGE INSTRUCTIONS ANTERIOR TOTAL HIP ARTHROPLASTY 1. Move toes/feet up and down every hour while awake. 2. Be up w
--- NOTE | 2023-04-14 11:59 | PM.IMPN ---
Progress Note: A&P Assessment and Plan (1) Arthritis of right hip: Code(s): M16.11 - Unilateral primary osteoarthritis, right hip Status: Acute Assessment and Plan: Postoperative direct anterior approach right total hip arthroplasty 04/12 Wound care, pain control, and DVT prophylaxis deferred to Dr. Mckeon. 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 Agree with PT/OT. (2) Type 2 diabetes mellitus: Code(s): E11.9 - Type 2 diabetes mellitus without complications Status: Acute Assessment and Plan: Hemoglobin A1c was 5.7% on 03/22/2023. Resume oral diabetes medication. Initiate sliding scale insulin, Accu-Cheks, and hypoglycemic protocol. Blood glucose reviewed 04/14 (3) Benign essential hypertension: Code(s): I10 - Essential (primary) hypertension Status: Acute Assessment and Plan: Blood pressures were reviewed 04/14 Antihypertensives will be reviewed and resumed as appropriate. (4) Hyperlipidemia: Qualifiers: Hyperlipidemia type: mixed hyperlipidemia Qualified Code(s): E78.2 - Mixed hyperlipidemia Code(s): E78.5 - Hyperlipidemia, unspecified Status: Acute Assessment and Plan: Continue atorvastatin 80 mg daily. LFTs WNL (5) Chronic kidney disease: Code(s): N18.9 - Chronic kidney disease, unspecified Status: Acute Assessment and Plan: Baseline creatinine between 1.5 and 1.60, remains at baseline (6) Hypothyroidism: Code(s): E03.9 - Hypothyroidism, unspecified Status: Acute Assessment and Plan: TSH was 2.150 on 03/22/2023. Continue levothyroxine. (7) Chronic anemia: Code(s): D64.9 - Anemia, unspecified Status: Acute Assessment and Plan: At baseline, monitor (8) Benign prostatic hyperplasia: Code(s): N40.0 - Benign prostatic hyperplasia without lower urinary tract symptoms Status: Acute Assessment and Plan: Monitor for urinary retention postoperatively. Bladder scan as needed. Continue alfuzosin and vibegron. Plan DVT prophylaxis with per surgery GI prophylaxis not indicated Code status full code Subjective Date/time seen: 04/14/23 11:59 Interval history: 88-year-old male with history of diabetes, hypertension among other comorbidities is admitted for right total hip replacement 04/12, hospital medicine consulted for medical management of his diabetes and comorbidities. No overnight events noted. No chest pain or shortness of breath. No nausea, vomiting or diarrhea. No fevers or chills. Review of Systems Review of Systems: 12 point review of systems was assessed and was negative except as noted in the HPI Exam Narrative: General: No acute distress, alert and oriented per baseline HEENT: Atraumatic, normocephalic, mucous membranes moist CV: Regular rate and rhythm, S1, S2 Lungs: Clear to auscultation bilaterally, no rales or crackles noted, no wheezes, good air entry Abdomen: Soft, nontender, nondistended Extremities: Normal to inspection Skin: No rashes noted, no lesions or wounds seen Psych: Euthymic, normal affect Objective Data Vital Signs Vital Signs: Vital Signs - 24 hr 04/13/23 12:00 04/13/23 15:56 04/13/23 12:00 Temperature 98.2 F 97.3 F L Pulse Rate 91 88 90 Respiratory Rate 16 16 Blood Pressure 107/56 L 112/59 L Pulse Oximetry 99 99 Oxygen Delivery 04/13/23 16:00 04/13/23 20:00 04/13/23 22:00 Temperature 97.8 F Pulse Rate 88 89 98 Respiratory Rate 14 Blood Pressure 96/61 L Pulse Oximetry 100 Oxygen Delivery 04/14/23 00:00 04/14/23 04:00 04/14/23 05:56 Temperature 97.8 F Pulse Rate 77 69 70 Respiratory Rate 14 Blood Pressure 100/63 Pulse Oximetry 99 Oxygen Delivery 04/14/23 09:45 Temperature Pulse Rate Respiratory Rate Blood Pressure Pulse Oximetry Oxygen Delivery
[2023-04-14 12:00] VITALS: PULSE 90
--- NOTE | 2023-04-14 14:02 | PC.NURSE ---
Pt discharged home with family. Home health is to follow up with pt to do lab draw on wednesday. Pt was instructed on discharge instructions. Pt has been educated on therapy instructions and worked with PT and OT successfully. Pt reports less pain today than yesterday. Pt is compliant with care. Pt prescription and belongings were sent home with pt. Pt IV was removed, tip intact. Pt tolerated well. Pt was wheeled down to car. Pt was assisted into car and tolerated well. Pt has been monitored for any changes in status. while here.
== END 2023-04-14 13:20 | disposition home health service (06) ==
LOC: ANHSURGERY 07:27 → ANH3MEDSUR 08:16
PROVIDERS: Nurse Practitioner; Physician Assistant; Physician Assistant Surgical; Admitting Provider Orthopaedic Surgery; PCP Internal Medicine; Visit Provider Orthopaedic Surgery
PROC: (CPT 27130; principal; 2023-04-12 07:30)
DX: M16.11 Unilateral primary osteoarthritis, right hip (principal); I12.9 Hypertensive chronic kidney disease with stage 1 through stage 4 chronic kidney disease, or unspecified chronic kidney disease; E11.22 Type 2 diabetes mellitus with diabetic chronic kidney disease; N18.30 Chronic kidney disease, stage 3 unspecified; D63.1 Anemia in chronic kidney disease; N40.0 Benign prostatic hyperplasia without lower urinary tract symptoms; N32.81 Overactive bladder; E78.2 Mixed hyperlipidemia; E03.9 Hypothyroidism, unspecified; E55.9 Vitamin D deficiency, unspecified; E66.9 Obesity, unspecified; Z68.41 Body mass index [BMI] 40.0-44.9, adult; F10.90 Alcohol use, unspecified, uncomplicated; Z86.718 Personal history of other venous thrombosis and embolism; Z79.82 Long term (current) use of aspirin; Z79.899 Other long term (current) drug therapy
CPT/HCPCS: 27130; 36415; 73501; 80048; 80069; 80076; 80307; 82948; 83735; 85025; 85610; 85730; 86850; 86900; 86901; 87081; 97110; 97116; 97161; 97165; 97530; 97535; 99199; A9270; C1776; G0378; J0171; J0330; J0690; J1100; J1170; J1815; J2270; J2371; J2405; J2704; J2795; J3010; J3370; J7030; J7120

== ENCOUNTER 2023-05-03 14:21 | Outpatient (CLI) | payer MEDICARE, SELFPAY ==
[2023-05-03 18:14] LABS: Free T4 Free Thyroxine 1.54 ng/mL (0.78-2.19)
== END 2023-05-03 14:22 | disposition home or self-care (01) ==
LOC: ANHLAB 14:23
PROVIDERS: PCP Internal Medicine; Visit Provider Internal Medicine
DX: E03.9 Hypothyroidism, unspecified (principal); Z79.899 Other long term (current) drug therapy
CPT/HCPCS: 36415; 84439; 84443

== ENCOUNTER 2023-05-13 08:59 | Outpatient (CLI) | payer MEDICARE, SELFPAY ==
--- NOTE | ~2023-05-13 | US_ITS ---
EXAMINATION:US venous doppler LE BI INDICATION:Leg edema. Recent right hip replacement. TECHNIQUE: Multiple grayscale, color flow and Doppler images of the right and left lower extremity de ep venous systems were obtained and reviewed. COMPARISON:Ultrasound dated 05/29/2010 FINDINGS: The common femoral, superficial femoral and popliteal veins demonstrate normal respiratory variation, augmentation and compressibility. Color flow is also seen within the posterior tibial, pe roneal, greater saphenous and profunda veins. IMPRESSION: 1: No lower extremity deep venous thrombosis. Reviewed, dictated and finalized at location L. RINARY INSPECTOR
[2023-05-13 09:53] LABS: Basophils Percent Auto 0.4 % (0.2-1.2); Eosinophils Absolute Auto 0.3 K/mm3 (0-0.3); Eosinophils Percent Auto 4.5 % (0-4.4); Hematocrit 30.7 % (42.0-52.0); Hemoglobin 9.4 g/dL (14.0-18.0); Immature Granulocyte Absolute 0.03 K/mm3 (0.00-0.031); Immature Granulocyte Percent A 0.4 % (0-0.5); Lymphocytes Absolute Auto 1.56 K/mm3 (0.9-3.2); Lymphocytes Percent Auto 22.7 % (18.3-44.2); Mean Corpuscular HGB Conc 30.6 g/dl (32-36); Mean Corpuscular Hemoglobin 30.9 pg (26-34); Mean Platelet Volume 9.8 fl (7.4-10.4); Monocytes Absolute Auto 0.5 K/mm3 (0.1-0.6); Monocytes Percent Auto 7.9 % (2.6-8.5); Neutrophils Absolute Auto 4.4 K/mm3 (1.3-6.7); Neutrophils Percent Auto 64.1 % (45.5-73.1); Platelet Count Result 296 k/mm3 (150-375); Red Blood Count 3.04 M/mm3 (4.6-6.20); Red Cell Distribution Width 15.3 % (11.5-14.5); White Blood Count 6.9 K/mm3 (4.5-10.0)
[2023-05-13 10:17] LABS: Alanine Aminotransferase 16 U/L (6-50); Albumin Level 3.8 g/dL (3.5-5.1); Alkaline Phosphatase 76 U/L (38-126); Anion Gap 7 mmol/L (8-16); Aspartate Amino Transferase 22 U/L (17-59); Bilirubin,Total 0.7 mg/dL (0.2-1.3); Blood Urea Nitrogen 30 mg/dL (9-20); Calcium 9.3 mg/dL (8.4-10.2); Carbon Dioxide 23 mmol/L (22-30); Chloride 108 mmol/L (98-107); Estimated Glomerular Filt Rate 52; Glucose 108 mg/dL (65-110); Potassium 4.6 mmol/L (3.4-5.0); Sodium 138 mmol/L (137-145)
== END 2023-05-13 09:00 | disposition home or self-care (01) ==
PROVIDERS: PCP Internal Medicine; Visit Provider Orthopaedic Surgery
DX: R60.0 Localized edema (principal)
CPT/HCPCS: 36415; 80053; 85025; 93970

== ENCOUNTER 2023-08-09 07:25 | Outpatient (CLI) | payer MEDICARE, SELFPAY ==
[2023-08-09 08:14] LABS: Hemoglobin A1C 6.1 % (<5.7)
[2023-08-09 08:20] LABS: Anion Gap 5 mmol/L (8-16); Blood Urea Nitrogen 33 mg/dL (9-20); Calcium 8.8 mg/dL (8.4-10.2); Carbon Dioxide 25 mmol/L (22-30); Chloride 108 mmol/L (98-107); Cholesterol 140 mg/dL (0-200); Estimated Glomerular Filt Rate 44; Glucose 105 mg/dL (65-110); HDL Direct 40 mg/dL; Potassium 4.7 mmol/L (3.4-5.0); Sodium 138 mmol/L (137-145); Triglycerides 72 mg/dL (<150)
[2023-08-09 08:29] LABS: LDL Cholesterol Direct 75 mg/dL
[2023-08-09 08:50] LABS: Free T4 Free Thyroxine 1.37 ng/mL (0.78-2.19)
== END 2023-08-09 07:26 | disposition home or self-care (01) ==
PROVIDERS: PCP Internal Medicine; Visit Provider Internal Medicine
DX: E78.5 Hyperlipidemia, unspecified (principal); E11.9 Type 2 diabetes mellitus without complications; E03.9 Hypothyroidism, unspecified; I10 Essential (primary) hypertension
CPT/HCPCS: 36415; 80048; 80061; 83036; 84439; 84443

== ENCOUNTER 2023-09-09 09:03 | Outpatient (CLI) | payer MEDICARE, SELFPAY ==
[2023-09-09 10:26] LABS: Anion Gap 6 mmol/L (4-12); Blood Urea Nitrogen 41 mg/dL (9-20); Calcium 9.3 mg/dL (8.4-10.2); Carbon Dioxide 26 mmol/L (22-30); Chloride 110 mmol/L (98-107); Estimated Glomerular Filt Rate 36; Glucose 114 mg/dL (65-110); Potassium 4.8 mmol/L (3.4-5.0); Sodium 142 mmol/L (137-145)
== END 2023-09-09 09:04 | disposition home or self-care (01) ==
LOC: ANHLAB 09:04
PROVIDERS: PCP Internal Medicine; Visit Provider Internal Medicine
DX: N18.9 Chronic kidney disease, unspecified (principal)
CPT/HCPCS: 36415; 80048

== ENCOUNTER 2023-10-06 10:57 | Outpatient (CLI) | payer MEDICARE, SELFPAY ==
--- NOTE | ~2023-10-06 | US_ITS ---
EXAMINATION: US renal BI DATE: 10/06/2023 12:27 INDICATION: Stage IIIB chronic kidney disease TECHNIQUE: Multiple ultrasound grayscale images of the kidneys were obtained. COMPARISON: None. FINDINGS: The right kidney measures 9.6 x 4.7 x 4.7 cm. The left kidney measures 9.7 x 5.2 x 5.1 cm. The kidney s demonstrate normal echogenicity. There are bilateral anechoic renal cysts measuring 1.1 cm the righ t kidney and 2.7 cm at the left kidney. There is no hydronephrosis in either kidney. No stones ident ified. The bladder is normal with bilateral ureteral jets visualized on color Doppler. IMPRESSION: 1. A couple simple cysts in otherwise normal kidneys. No hydronephrosis. Reviewed, dictated and finalized at location A.
== END 2023-10-06 10:58 | disposition home or self-care (01) ==
PROVIDERS: PCP Internal Medicine; Visit Provider Internal Medicine Nephrology
DX: E11.22 Type 2 diabetes mellitus with diabetic chronic kidney disease (principal); I12.9 Hypertensive chronic kidney disease with stage 1 through stage 4 chronic kidney disease, or unspecified chronic kidney disease; N18.32 Chronic kidney disease, stage 3b; N25.81 Secondary hyperparathyroidism of renal origin; E55.9 Vitamin D deficiency, unspecified; N28.1 Cyst of kidney, acquired
CPT/HCPCS: 76775

== ENCOUNTER 2023-12-22 06:59 | Outpatient (CLI) | payer MEDICARE, SELFPAY ==
[2023-12-22 07:41] LABS: Add Urine Microscopic? NO; Appearance Urine Clear (Clear); Bilirubin Urine Negative (Negative); Blood Urine Negative (Negative); Color Urine Yellow (Yellow); Glucose Urine UA Negative (Negative); Ketones Urine Negative (Negative); Leukocyte Esterase Ur Negative LEU/UL (Negative); Nitrate Urine Negative (Negative); Protein Urine Negative (Negative); Specific Grav Ur 1.013 (1.001-1.035); Urobilinogen Urine 0.2 mg/dL (<2.0)
[2023-12-22 07:54] LABS: Alanine Aminotransferase 18 U/L (6-50); Alkaline Phosphatase 51 U/L (38-126); Anion Gap 8 mmol/L (4-12); Aspartate Amino Transferase 26 U/L (17-59); Bilirubin,Total 0.7 mg/dL (0.2-1.3); Blood Urea Nitrogen 39 mg/dL (9-20); Calcium 8.7 mg/dL (8.4-10.2); Carbon Dioxide 25 mmol/L (22-30); Chloride 105 mmol/L (98-107); Cholesterol 141 mg/dL (0-200); Estimated Glomerular Filt Rate 41; Glucose 103 mg/dL (65-110); HDL Direct 43 mg/dL; Potassium 5.1 mmol/L (3.4-5.0); Sodium 138 mmol/L (137-145); Triglycerides 58 mg/dL (<150)
[2023-12-22 08:05] LABS: LDL Cholesterol Direct 66 mg/dL
[2023-12-22 08:12] LABS: Free T4 Free Thyroxine 1.28 ng/mL (0.78-2.19)
[2023-12-22 08:54] LABS: Hemoglobin A1C 6.1 % (<5.7)
== END 2023-12-22 07:00 | disposition home or self-care (01) ==
PROVIDERS: PCP Internal Medicine; Visit Provider Internal Medicine
DX: E11.9 Type 2 diabetes mellitus without complications (principal); Z79.899 Other long term (current) drug therapy; E03.9 Hypothyroidism, unspecified; N18.2 Chronic kidney disease, stage 2 (mild); E78.5 Hyperlipidemia, unspecified; I10 Essential (primary) hypertension
CPT/HCPCS: 36415; 80053; 80061; 81003; 83036; 84439; 84443

== ENCOUNTER 2024-03-17 09:42 | Outpatient (CLI) | payer MEDICARE, SELFPAY ==
[2024-03-17 10:20] LABS: Albumin Level 4.1 g/dL (3.5-5.1); Anion Gap 8 mmol/L (4-12); Blood Urea Nitrogen 43 mg/dL (9-20); Calcium 8.7 mg/dL (8.4-10.2); Carbon Dioxide 26 mmol/L (22-30); Chloride 106 mmol/L (98-107); Estimated Glomerular Filt Rate 32; Glucose 71 mg/dL (65-110); Phosphorus 3.6 mg/dL (2.5-4.5); Potassium 4.8 mmol/L (3.4-5.0); Sodium 140 mmol/L (137-145)
[2024-03-17 10:23] LABS: Creatinine Urine 112.1 mg/dL
[2024-03-17 10:32] LABS: Parathyroid Intact 61.2 pg/mL (14.5-75.2)
[2024-03-17 11:03] LABS: Vitamin D 25 Hydroxy 36.4 ng/mL
[2024-03-17 12:20] LABS: Total Protein Urine Random < 5 mg/dL
[2024-03-17 12:22] LABS: Ur Ttl Prot Creatinine Ratio < 0.04 mg/mg (0-0.20)
== END 2024-03-17 09:43 | disposition home or self-care (01) ==
PROVIDERS: PCP Internal Medicine; Visit Provider Internal Medicine Nephrology
DX: I12.9 Hypertensive chronic kidney disease with stage 1 through stage 4 chronic kidney disease, or unspecified chronic kidney disease (principal); N18.32 Chronic kidney disease, stage 3b; E11.22 Type 2 diabetes mellitus with diabetic chronic kidney disease; N25.81 Secondary hyperparathyroidism of renal origin; E55.9 Vitamin D deficiency, unspecified
CPT/HCPCS: 36415; 80069; 82306; 82570; 83970; 84156

== ENCOUNTER 2024-04-27 07:34 | Outpatient (CLI) | payer MEDICARE, SELFPAY ==
[2024-04-27 08:18] LABS: Alanine Aminotransferase 17 U/L (6-50); Albumin Level 3.9 g/dL (3.5-5.1); Alkaline Phosphatase 56 U/L (38-126); Anion Gap 4 mmol/L (4-12); Aspartate Amino Transferase 27 U/L (17-59); Bilirubin,Total 0.8 mg/dL (0.2-1.3); Blood Urea Nitrogen 35 mg/dL (9-20); Calcium 8.7 mg/dL (8.4-10.2); Carbon Dioxide 25 mmol/L (22-30); Chloride 110 mmol/L (98-107); Cholesterol 138 mg/dL (0-200); Estimated Glomerular Filt Rate 38; Glucose 106 mg/dL (65-110); HDL Direct 44 mg/dL; Sodium 139 mmol/L (137-145); Triglycerides 49 mg/dL (<150)
[2024-04-27 08:19] LABS: Add Urine Microscopic? NO; Appearance Urine Clear (Clear); Bilirubin Urine Negative (Negative); Blood Urine Negative (Negative); Color Urine Yellow (Yellow); Glucose Urine UA Negative (Negative); Ketones Urine Negative (Negative); Leukocyte Esterase Ur Negative LEU/UL (Negative); Nitrate Urine Negative (Negative); Protein Urine Negative (Negative); Specific Grav Ur 1.016 (1.001-1.035); Urobilinogen Urine 0.2 mg/dL (<2.0); pH Urine 5.5 (5.0-9.0)
[2024-04-27 08:29] LABS: LDL Cholesterol Direct 62 mg/dL
[2024-04-27 09:02] LABS: Free T4 Free Thyroxine 1.31 ng/dL (0.78-2.19)
[2024-04-27 09:42] LABS: Creatinine Urine 106.5 mg/dL
[2024-04-27 09:45] LABS: MALB Creatinine Ratio 11.9 mg/g (0-30); Microalbumin Urine Random 12.7 mg/L (0-16.7)
== END 2024-04-27 07:35 | disposition home or self-care (01) ==
LOC: ANHLAB 07:35
PROVIDERS: PCP Internal Medicine; Visit Provider Internal Medicine
DX: E78.2 Mixed hyperlipidemia (principal); E03.9 Hypothyroidism, unspecified; I10 Essential (primary) hypertension; E11.9 Type 2 diabetes mellitus without complications; Z79.899 Other long term (current) drug therapy
CPT/HCPCS: 36415; 80053; 80061; 81003; 82043; 83036; 84439; 84443

== ENCOUNTER 2024-09-06 07:05 | Outpatient (CLI) | payer MEDICARE, SELFPAY ==
--- OUTSIDE RECORDS SUMMARY | 2024-09-06 07:10 | XMS_ITS | Clinical Summary ---
Author Organization [facility] [place] [address] Address [address] [place] [address] Care Team Providers Care Aboriginal Education Worker Coordinator Name Role Phone Chauncey Padron MD Primary Care Provider [phone] Allergies Active Allergy Reactions Criticality Noted Date Comments Sulfa (Sulfonamide Antibiotics) Rash Medium 03/19 Medications repaglinide (PRANDIN) 0.5 mg tabletIndicatio ns:type 2 diabetes mellitus Take 1 tablet (0.5 mg total) by mouth 3 (three) times a day 1 8 Active pioglitazone (ACTOS) 15 mg tabletIndicatio ns:type 2 diabetes mellitus Take 1 tablet (15 mg total) by mouth daily 0 8 Active quinapril (ACCUPRIL) 10 mg tablet Take 1 tablet (10 mg total) by mouth daily 1 8 Active levothyroxine (SYNTHROID, LEVOTHROID) 75 mcg tablet Take 1 tablet (75 mcg total) by mouth supervisor personnel clerks before breakfast Active aspirin 81 mg tablet Take 1 tablet (81 mg total) by mouth daily Active ergocalciferol (VITAMIN D) 50,000 unit capsule 1 capsule (50,000 Units total) once a week 0 9 Active MYRBETRIQ 50 mg tablet extended release 24 hr 1 tablet (50 mg total) daily 3 9 Active alfuzosin ER (UROXATRAL) 10 mg 24 hr tablet TK ONE T PO D AFTER THE SAME MEAL EACH DAY. THIS REPLACES TAMSULOSIN 0 Active atorvastatin (LIPITOR) 80 mg tablet TK 1 T PO D 0 Active folic acid (FOLVITE) 400 mcg tablet Take 1 tablet (400 mcg total) by mouth daily Active bwxmy-5-trj-epa -dpa-fish oil 1,050-1,200 mg capsule 1 capsule Active calcium carbonate-vitam in D3 500 mg(1,250mg) -400 unit chewable tablet Take 1 tablet by mouth daily Active Active Problems Problem Noted Date Diagnosed Date Status post placement of implantable loop record er 05/23/2018 Overview (05/23/2018): [employer] Implantable Loop Recorder, Dx; Syncope. DOI 05/20/2018-Evelia. [employer] remote monitoring. Syncope and collapse 05/13/2018 Surgical History Surgery Date Site/Laterality Comments APPENDECTOMY DISCECTOMY REPLACEMENT TOTAL KNEE CATARACT EXTRACTION, BILATERAL Medical History Medical History Date Comments Hypertension Hyperlipidemia Diabetes mellitus (HCC) Thyroid disease Family History Relation Name Status Comments Father (Age 98) Mother (Age 84) Social History Tobacco Use Types Packs/Day Years Used Date Smoking Tobacco: Never Smokeless Tobacco: Never Tobacco Cessation:Counseling Given: Not Answered Alcohol Use Standard Drinks/Week Comments No 0 (1 standard drink = 0.6 oz pur e alcohol) Personal Safety Answer Date Recorded Getting School Help Needed Not on file 07/09 Sex and Gender Information Value Date Recorded Sex Assigned at Not on file 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 Gender Identity Not on file Sexual Orientation Not on file Obstetrics History Last Filed Vital Signs Vital Sign Reading Time Taken Comments Blood Pressure 110/64 10/13/2022 9:07 AM CDT Pulse 88 10/13/2022 9:07 AM CDT Temperature - - Respiratory Rate - - Oxygen Saturation 96% 10/13/2022 9:07 AM CDT Inhaled Oxygen Concentration - - Weight 99.8 kg (220 lb) 10/13/2022 9:07 AM CDT Height 167.6 cm (5' 6 ) 10/13/2022 9:07 AM CDT Body Mass Index 35.51 10/13/2022 9:07 AM CDT Plan of Treatment Health Maintenance Due Date Last Done Comments Depression Screening 1935 Fall Risk Assessment 1935 DTaP/Tdap/Td Vaccine (1 - Tdap) 1946 Hepatitis B Screening 1953 Pneumococcal vaccine 65+ (1 of 1 - PCV) 1985 Zoster Vaccine (1 of 2) 1985 Well Visit 65+ 02/09/2000 Influenza Vaccine (#1) 2024 8, 01/22/2014, 02/03/2013, Additional history exists Insurance [employer] MEDICARE Care Teams Aboriginal Education Worker Coordinator Relationship Specialty Start Date End Date Chauncey Padron MD [address] [facility] [address] [place] [address] PCP - General Internal Medicine 04/12/18
--- OUTSIDE RECORDS SUMMARY | 2024-09-06 07:10 | XMS_ITS | Referral Summary ---
Author Organization [facility] [place] [address] Address [address] [place] [address] Care Team Providers Care Silk Spooler Name Role Phone Chauncey Padron MD Primary Care Provider [phone] Allergies Active Allergy Reactions Criticality Noted Date [...] 1 tablet (75 mcg total) by mouth tuyere fitter before breakfast Active aspirin 81 mg tablet [...] (400 mcg total) by mouth daily Active cosvl-5-kjr-epa -dpa-fish oil 1,050-1,200 mg capsule 1 capsule Active calcium carbonate-vitam in D3 500 mg(1,250mg) -400 unit chewable tablet Take 1 tablet by mouth daily Active Active Problems Problem Noted Date Diagnosed Date Status post placement of implantable loop record er 05/23/2018 Overview (05/23/2018): [employer] Implantable Loop Recorder, Dx; Syncope. DOI 05/20/2018-Evelia. [employer] remote monitoring. 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
--- OUTSIDE RECORDS SUMMARY | 2024-09-06 07:10 | XMS_ITS | Data Portability ---
Author Organization [place] - [email or web address], Main Office Address [address] [place] [address] Care Team Providers Care Pond Worker Name Role Phone KAROLYN ADAM Primary Care Provider KAROLYN ADAM Referring Provider [phone] Assessment Encounter Date Assessment Date Assessment LastModified by Organization Details LastModified Time 11/30/2022 11/30/2022 patient returns. He has now had symptoms for approximately 3 months. He had done a great deal of walking that day and the next morning his severe pain the right hip MRI scan showed moderate joint space narrowing and subchondral edema in the femoral head. Since that time he has had some progression of cartilage loss the superior hip joint space which seem to plateau at about a remaining 1.5 mm and the last x-rays from 1 month ago. We have referred physical therapy has been going. Yesterday he walked all over the house without his cane was feeling fine he wrote an exercise bike 15 minutes did well with that today is more sore. He is at physical therapy today and is more sore yet. He has not taken Aleve today. He takes these only rarely proximally 1 pill every twice a week. Is otherwise on no medications for this. We talked about the importance of weight loss and he has not had much luck losing weight. He believes that perhaps he has lost at was 2 lb in last 3 months. He understands he is going to have cut back on his daily caloric intake somewhat for him to be able to lose weight since she cannot walk for exercise any more. We have discussed with him that he has 2 options, living with this or having hip replacement. He is at increased risk for medical complications with hip replacement because of his advanced age. He would like to avoid surgery if possible. He has 3 more visits physical therapy did he will complete. He will use the Aleve as needed. We will give it more time and hopefully the answer the question of what the best approach would be would become evident based on either worsening symptoms or improving symptoms over time. I will see him back in 2 months assess progress. 20 minutes were spent total care this patient more than half the time spent in [id number] care. 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 His symptoms are at times severe now. He limbs constantly. Some nights he can not sleep because it hurts so much and that he has better day sometimes. He has decided that living with this is not an acceptable option for him and he wants to proceed with total hip replacement. I had a long discussion with patient and his . We discussed the risks of surgery. I explained that my preference is use is to use the direct anterior approach. I discussed that there will be numbness around the incision. I would expect that we would be able to achieve excellent fixation with an uncemented stem based on his thick cortical bone. risk of infection reviewed. He is familiar with this risk and does take antibiotics before dental work because of his knee replacements. He is at higher risk for infection because of his history of diabetes we would plan to use extended oral antibiotics for 2 weeks after surgery to mitigate that risk. Risk of blood clots discussed. 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 The direct anterior approach affords us the opportunity to have running sequential compressive devices on his legs during the operation itself and this would be used after surgery until discharge. My preference would be to use Eliquis 2.5 mg twice daily for 5 weeks after surgery. I discussed the risk of heterotopic ossification. If his renal function is normal I would plan to use once daily Celebrex for 10 days after surgery to mitigate risk of heterotopic ossification. I explained that he would need to stop his Aleve 1 week before surgery. We discussed the risk of leg length discrepancy dislocation fracture component loosening need for revision surgery component breakage nerve injury bleeding transfusion. Risk of medical complications such as heart attack stroke pulmonary embolism and were reviewed in detail. His risk of mortality is at least 1/200 after surgery because of his advanced age. I would require that he be seen by Dr. Hinojosa for a cardiac risk assessment and if he was felt to be at moderate to high risk of major cardiac event and he may need to consider in avoiding surgery and instead living with the disability. He did see Dr. Hinojosa for 4 years that started after he fell due to a syncopal episode. He had a loop recorder in place for a long time and no arrhythmia was ever diagnosed. I would also want him to see Dr. Adam before surgery for pre-surgical medical evaluation. His questions were answered and he would like to proceed as discussed. 40 minutes were spent in total care this patient than half the time spent in [id number]-jb-[id number] care. Not available 02/03/2023 20:19:49 04/26/2023 04/26/2023 Patient returns now 2 weeks after right total hip arthroplasty. He is doing well. Complains that when the pillow was put underneath his right heel while he is supine in bed this makes his hip more sore and I have recommended that he not put the pillow under his heel but rather under his knee and calf like he had in the hospital. That gives little bit of a bent to the knee and allows the hip to move easily where as having the pillow under the heel requires the muscles to lift the entire leg just to move it a little bit which puts a strain on the hip muscles. He feels that he is getting better every day and he is quite comfortable putting a little bit of weight on it and he is using a walker centrally full weight-bearing. He has not taken a pain pill in 3 days. I have encouraged him to use the Tylenol as needed for comfort this point. He is continuing on the Eliquis b.i.d. he will complete the 5 week course. He takes 1 baby aspirin daily as well. On exam the wound is nicely sealed and looks fine. Has moderate edema 2 around the hip wound which is typical at this point. He has trace he has edema in the right leg compared to left which is typical also. He will continue with walker for the next 2 weeks and I will see him back at that time with x-rays right hip and pelvis. If he has any problems in the meantime he will call. Not available 04/26/2023 15:05:36 05/12/2023 05/12/2023 Patient returns now 4 weeks after right total hip arthroplasty. Surgery was on 04/12/2023. He has been feeling much better this past week. He has had minimal discomfort and he is walking caring the walker. He is taking the Eliquis 2.5 mg twice daily for DVT prophylaxis. Exam his wound is well healed. He did have a 3 mm scab approximately 1 cm distal to the proximal and the incision where it is a deeper in the groin crease and I removed this and there is a little bit of bleeding underneath it and I removed some of the excess peeling glue around it. I would like to have him keep a Band-Aid on this for another 2 weeks to avoid having the underwear band rub on it. Incision otherwise looks perfect. He has 1+ edema in the right leg. He has 1 to 2+ edema left leg. Has had swelling in his legs chronically and it is actually little bit less in the right leg because he has been keeping it elevated presumably. He has no calf tenderness in either leg. His radiographs look fine right hip replacement. Impression: Patient is doing well clinically. since he does have a history of DVT after his knee replacements I think it would be best to obtain a venous duplex ultrasound of both legs to make sure he does not have a DVT before his Eliquis is stopped and this is scheduled to stop in 7 days. We will order this tomorrow. If there is no evidence of DVT, I would like him to see Dr. Adam For evaluation of his lower extremity edema. While he is at hospital will have a CBC and CMP drawn as well. I reviewed the office notes from Dr. Hinojosa the technologist development and Dr. Mora the food quality tester and my office notes and I did not note lower extremity edema in those notes on my review today. Therefore the lower extremity edema may be new and is so would warrant evaluation. I should see him back in 1 month to assess his progress. Not available 05/12/2023 19:33:26 06/11/2023 06/11/2023 Patient returns. He is now 2 months out after total hip arthroplasty right hip. Yesterday the 1st time he walked the 3/4 of her mi lap in his neighborhood. He did without any gait aid and he tolerated very well. He felt a little fatigued afterwards but no shortness of breath. On a regular basis he has been riding the exercise bike up to 25 minutes at a time on a frequent basis. At last visit he had rather severe bilateral leg edema. We obtained venous duplex ultrasounds which were negative. Saw Dr. Adam and was started on Lasix which she was taking daily the 1st 2 weeks and the edema improved and over the last 2 weeks he has been taking it every other day. Take a potassium supplement as well. On exam today he has only minimal trace edema in both legs. His right calf is smaller than the left visibly due to decrease muscular bulk on the right posterior calf specially. He feels that this occurred during the 9 months following his abrupt onset of hip symptoms last July which curtailing his activities quite a bit. His incision is well healed today. He is walking well without gait aid. Impression: Patient is has recovered very well. I would like to see him back in 10 months to assess his progress he would like to stay with me. I explained him that I am going to be employed by [employer] starting August 15. He has any problems in the meantime will call. Not available 06/11/2023 13:10:48 Plan of Treatment Reminders Order Date Submit Date Provider Last Modified By Organization Details Last Modified Time Details Appointments None recorded. Lab None recorded. Referral None recorded. Procedures None recorded. Surgeries None recorded. Imaging XR, hip + pelvis, unilateral 2022 023 [facility] [place], [address], [place], [address], 11:46:17 XR, hip + pelvis, unilateral, 2 or 3 view 2022 023 [email or web address] [facility] [place], [address], [place], [address], 09:48:55 Medication Orders None recorded. Patient TargetsNo targets recorded. Patient InstructionsNo instructions recorded. Reason for Referral None Reported. Results Created Date Observation Date Name Description Value Unit Range Abnormal Flag Note LastModifiedBy Organization Detail LastModifiedTime 04/16/2004/16/2023 CBC W/O DIFFE RENSHANNON AL white blood cells 9.4 x10'3 /uL 4.2-10 .8 Not Available [facility] (Lab) [address] [place], [address], 04/16/2023 19:23:03 04/16/20 23 04/16/2023 CBC W/O DIFFE RENTI AL red blood cells 2.81 x10'6 /uL 4.10-5 .80 low Not Available [facility] (Lab) [address] [place], [address], 04/16/2023 19:23:03 04/16/20 23 04/16/2023 CBC W/O DIFFE RENTI AL hemoglobin 8.8 g/dL 13.2-1 7.0 low Not Available [facility] (Lab) [address] [place], [address], 04/16/2023 19:23:03 04/16/20 23 04/16/2023 CBC W/O DIFFE RENTI AL hematocrit 27.7 % 39.3-5 0.0 low Not Available [facility] (Lab) [address] [place], [address], 04/16/2023 19:23:03 04/16/20 23 04/16/2023 CBC W/O DIFFE RENTI AL mean red cell volume 98.6 fL 80.0-9 7.0 high Not Available [facility] (Lab) [address] [place], [address], 04/16/2023 19:23:03 04/16/20 23 04/16/2023 CBC W/O DIFFE RENTI AL mean red cell hemoglobin 31.3 pg 27.0-3 3.0 Not Available [facility] (Lab) [address] [place], [address], 04/16/2023 19:23:03 04/16/20 23 04/16/2023 CBC W/O DIFFE RENTI AL mean RBC HGB concentratio n 31.8 g/dL 31.0-3 6.0 Not Available [facility] (Lab) [address] [place], [address], 04/16/2023 19:23:03 04/16/20 23 04/16/2023 CBC W/O DIFFE RENTI AL red cell distribution width 13.9 % 11.8-1 5.5 Not Available [facility] (Lab) [address] [place], [address], 04/16/2023 19:23:03 04/16/20 23 04/16/2023 CBC W/O DIFFE RENTI AL platelets 261 x10'3 /uL 150-40 0 Not Available [facility] (Lab) [address] [place], [address], 04/16/2023 19:23:03 04/16/20 23 04/16/2023 CBC W/O DIFFE RENTI AL mean platelet volume 10.0 fL 9.0-12 .4 Not Available [facility] (Lab) [address] [place], [address], 04/16/2023 19:23:03 11/03/19 23 XR, hip + pelvi s, unila teral No observ ation record ed. [facility] [place] [address] [address], [place], [address], 11/14/2022 19:09:29 02/02/20 23 XR, hip + pelvi s, unila teral , 2 or 3 view No observ ation record ed. [facility] [place] [address], [place], [address], 02/03/2023 20:12:24 03/26/20 23 03/26/2023 elect kika diezgr am No observ ation record ed. [email or web address] Not Available 2022 15:16:52 04/12/20 23 04/12/2023 XR, hip + pelvi s, unila teral No observ ation record ed. [address], [place], [address], 04/13/2023 10:51:48 04/12/2004/12/2023 XR, hip + pelvi s, unila teral No observ ation record ed. [address], [place], [address], 04/13/2023 10:13:56 05/12/20 XR, hip + pelvi s, unila teral No observ ation record ed. [facility] [place] [address] [facility] [address], [place], [address], 05/12/2023 19:15:51 05/13/20 23 05/13/2023 US, duple x, venou s, lower extre mity No observ ation record ed. [address], [place], [address], 05/14/2023 12:42:13 05/13/20 23 05/13/2023 US, duple x, venou s, lower extre mity No observ ation record ed. [address], [place], [address], 05/14/2023 12:42:13 Result Notes None recorded. Problems Name Problem SNOMED Code Status Onset Date Resolution Date Notes Provider Name and Address Organization Details Recorded Time Partial thickness rotator cuff tear 985919490 Active Not Available [employer] 3 09:17:35 Pain in right hip joint 9011369981353 02 Active 2022 ROBERTO Wang [place] [facility] [employer] 3 10:58:34 Osteoarthr itis 431305306 Active 2022 ROBERTO Wang [place] Kurtis [facility] [employer] [facility] 3 15:22:03 Osteoarthr itis of right hip joint 6944433348480 07 Active 2022 Debra MagdalenaFAN null, [facility] 3 16:50:47 Preoperati ve cardiovasc ular examinatio n Active 2022 Debra Magdalena PROTOTYPE FABRICATOR null, [facility] 3 16:51:05 Swelling of bilateral lower limbs 620398277 Active 2022 Alem Parr ATC L null, [facility] 3 08:55:13 Bilateral localized swelling of lower limbs 0247740131381 9104 Active 2022 Alem Parr ATC L null, [facility] 3 08:56:25 Localized edema 743195708 Active 2022 Alem Parr ATC L null, [facility] 3 08:56:42 Problem Notes None recorded. Procedures Surgical History Date Name Laterality Status Provider Name and Address Organization Details Recorded Time total knee replacement completed Arlene Bryant Shannan [facility] 08/03/2022 10:56:54 Back Surgery completed Arlene Bryant Shannan [facility] 08/03/2022 10:57:02 Appendectomy completed Arlene Bryant Shannan [facility] 08/03/2022 10:57:10 Imaging Results Imaging Date Name Status LastModified by Organization Details LastModified Time 11/02/2022 XR, hip + pelvis, unilateral completed [facility] [place] [address], [place], [address], 11/14/2022 19:09:29 02/01/2023 XR, hip + pelvis, unilateral, 2 or 3 view completed [facility] [place] [address], [place], [address], 02/03/2023 20:12:24 03/26/2023 electrocardiogram completed [email or web address] Informa tion not available 03/26/2023 15:16:52 04/12/2023 XR, hip + pelvis, unilateral completed [address], [address], 04/13/2023 10:51:48 04/12/2023 XR, hip + pelvis, unilateral completed [address] [place], [address], 04/13/2023 10:13:56 05/12/2023 XR, hip + pelvis, unilateral completed [facility] [place] [address] [facility] [address], [place], [address], 05/12/2023 19:15:51 05/13/2023 US, duplex, venous, lower extremity completed [address], [place], [address], 05/14/2023 12:42:13 05/13/2023 US, duplex, venous, lower extremity completed [address] [place] [address], [address], 05/14/2023 12:42:13 Procedure Notes None recorded. Medical Equipment None Reported. Allergies Allergen ID Allergen Name Allergen Category Reaction Reaction Severity Criticality Documentation Date Start Date Code Code System Note Provider Name and Address Organization Details Recorded Time 28682 Substance with sulfonami de structure and antibacte rial mechanism of action (substanc e) medicatio n Not available Not available Not available 07/15/2022 75135 8003 SNOMED Not Available [employer] 09:21:16 Medications Name Sig Start Date Stop Date Status Note LastModified by Organization Details LastModified Time amoxicillin 500 mg capsule TK FOUR CS PO 1 HOUR B DAPP 04/26 completed Not Available Not Available Not Available pioglitazon e 15 mg tablet TAKE 1 TABLET BY MOUTH DAILY active Not Available Not Available No t Available atorvastati n 80 mg tablet TAKE 1 TABLET BY MOUTH DAILY active Not Available Not Available No t Available potassium chloride ER 10 mEq capsule,ext ended release TAKE 1 CAPSULE BY MOUTH DAILY active Not Available Not Available No t Available clindamycin HCl 300 mg capsule TAKE 2 CAPSULES BY MOUTH ONE HOUR PRIOR TO DENTAL APPOINTME NT active Not Available Not Available No t Available azithromyci n 250 mg tablet 03/27 completed Not Available Not Available Not Available hydrocodone 5 mg-acetamin ophen 325 mg tablet 03/27 completed Not Available Not Available Not Available Nystop 100,000 unit/gram topical powder APPLY TOPICALLY TO THE AFFECTED AREA THREE TIMES DAILY 05/12 completed Not Available Not Available Not Available lisinopril 20 mg tablet TAKE 1 TABLET BY MOUTH DAILY active Not Available Not Available No t Available verapamil ER (SR) 180 mg tablet,exte nded release 03/27 completed Not Available Not Available Not Available Accu-Chek Softclix Lancets USE TO TEST BLOOD SUGAR TWICE DAILY 05/12 completed Not Available Not Available Not Available levothyroxi ne 75 mcg tablet TAKE 1 TABLET BY MOUTH DAILY 04/26 completed Not Available Not Available Not Available quinapril 10 mg tablet TAKE 1 TABLET BY MOUTH DAILY 11/30 completed Not Available Not Available Not Available repaglinide 0.5 mg tablet TAKE 1 TABLET BY MOUTH THREE TIMES DAILY active Not Available Not Available No t Available tamsulosin 0.4 mg capsule TK 2 CS PO QD 05/01 completed Not Available Not Available Not Available OneTouch Ultra Test strips USE TO TEST BLOOD SUGAR 4 TO 5 TIMES DAILY active Not Available Not Available No t Available levothyroxi ne 50 mcg tablet TAKE 1 TABLET BY MOUTH DAILY active Not Available Not Available No t Available Anitra 128 5 % eye drops INSTILL 1 DROP IN LEFT EYE THREE TIMES DAILY FOR 5 DAYS 09/07 completed Not Available Not Available Not Available nystatin-tr iamcinolone 100,000 unit/g-0.1 % topical cream 08/10 completed Not Available Not Available Not Available furosemide 20 mg tablet TAKE 1 TABLET BY MOUTH EVERY MORNING active Not Available Not Available No t Available methylpredn isolone 4 mg tablets in a dose pack TAKE DIRECTED 09/07 completed Not Available Not Available Not Available cefdinir 300 mg capsule TAKE 1 CAPSULE BY MOUTH EVERY 12 HOURS active Not Available Not Available No t Available oxycodone 5 mg tablet TAKE 1/2 TABLET BY MOUTH EVERY 4 HOURS NEEDED 05/12 completed Not Available Not Available Not Available alfuzosin ER 10 mg tablet,exte nded release 24 hr TAKE ONE TABLET BY MOUTH DAILY AFTER THE SAME MEAL EACH DAY. THIS REPLACES TAMSULOSI N active Not Available Not Available No t Available Vytorin 10 mg-40 mg tablet 03/27 completed Not Available Not Available Not Available chlorhexidi ne gluconate 0.12 % mouthwash SWISH AND SPIT OUT 10 TO 15 ML BY MOUTH TWICE DAILY FOR 1 WEEK BEFORE AND AFTER SURGERY 04/26 completed Not Available Not Available Not Available aspirin 2019 active Not Available Not Available Not Avai lable calcium active Not Available Not Avail able Not Available OneTouch Ultra2 Meter kit 03/27 completed Not Available Not Available Not Available Myrbetriq 50 mg tablet,exte nded release TAKE 1 TABLET BY MOUTH DAILY 08/03 completed Not Available Not Available Not Available Eliquis 2.5 mg tablet TAKE 1 TABLET BY MOUTH EVERY 12 HOURS 05/12 completed Not Available Not Available Not Available Fluzone High-Dose (PF) 180 mcg/0.5 mL intramuscul ar syringe 03/27 completed Not Available Not Available Not Available Ultra [place]-3 02/01 completed Not Available Not Available Not Available OneTouch Ultra Blue Test Strip USE TO TEST BLOOD SUGAR 4 TO 5 TIMES active Not Available Not Available No t Available Fluzone High-Dose Quad (PF) 240 mcg/0.7 mL IM syringe ADM 0.7ML IM UTD 05/01 completed Not Available Not Available Not Available Gemtesa 75 mg tablet TAKE 1 TABLET BY MOUTH DAILY active Not Available Not Available No t Available Vitals Date Recorded Body height Provider Name an d Address Organization Details Last Updated DateTime 11/30/2022 165.1 cm Arlene Bryant Shannan [facility] [employer] [facility] 11/30/2022 15:20:47 Date Recorded Body height Provider Name an d Address Organization Details Last Updated DateTime 02/01/2023 165.1 cm Arlene Bryant Shannan [facility] [employer] [facility] 02/01/2023 14:44:09 Date Recorded Body height Provider Name an d Address Organization Details Last Updated DateTime 04/26/2023 165.1 cm ROBERTO Wang ND Kurtis [facility] [employer] [facility] 04/26/2023 14:41:45 Date Recorded Body height Provider Name an d Address Organization Details Last Updated DateTime 05/12/2023 165.1 cm ROBERTO Wang [facility] [employer] [facility] 05/12/2023 09:43:24 Date Recorded Body height Provider Name an d Address Organization Details Last Updated DateTime 06/11/2023 165.1 cm ROBERTO Wang [facility] [employer] [facility] 06/11/2023 11:04:25 Social History Question Answer Notes LastModified by Organizat ion Details LastModified Time Tobacco Smoking Status Never Smoker ROBERTO Wang ND Kurtis [facility] [employer] [facility] 08/03/2022 10:56:40 What Is Your Level Of Alcohol Consumption? None [email or web address] Information not available 08/03/2022 Sex: Unknown Functional Status None recorded. Mental Status None recorded. Family History Relationship Description Onset Age of this Age Resolved Age Notes LastModified by Organization Details LastModified Time Mother Family history of malignant neoplasm [email or web address] Not available 2022 10:56:28 Medical History Condition Response ARTHRITIS Y DIABETES, TYPE Y HYPERTENSION Y Past Encounters Encounter ID Performer Location Encounter Start Date Encounter Closed Date Diagnosis/Indication Diagnosis SNOMED-CT Code Diagnosis ICD10 Code Diagnosis Note [id number] Jonas Mckeon MD [facility] [place] [address] [place] [address] 08/03/2022 10:29:51 08/03/2022 12:28:24 Pain in right hip joint 7165114562 88722 M25.551 [id number] Jonas Mckeon MD [facility] [place] [address] [place] [address] 08/10/2022 15:45:36 08/20/2022 10:47:40 Pain in right hip joint 8983715858 67167 M25.551 [id number] Jonas Mckeon MD [facility] [place] [address] [place] [address] 09/07/2022 14:39:31 09/14/2022 10:29:47 History of total replacement of right hip joint 1673135625 87416 Z96.641 [id number] CASTRO Kline [facility] [place] [address] [address] [place] [address] 10/05/2022 14:46:56 10/05/2022 16:24:36 History of total replacement of right hip joint [id number] Z96.641 [id number] Jonas Mckeon MD [facility] [address] [place] [address] 11/02/2022 15:47:01 11/16/2022 09:32:48 Pain in right hip joint [id number] [id number] M25.551 [id number] Jonas Mckeon MD [facility] [address] [place] [address] 11/30/2022 15:14:16 11/30/2022 17:04:19 Osteoarthritis [id number] M16.11 [id number] Jonas Mckeon MD [facility] [address] [place] [address] 02/01/2023 14:41:36 02/05/2023 09:48:55 Osteoarthritis [id number] M16.11 [id number] Jonas Mckeon MD [facility] [address] [place] [address] 04/26/2023 14:32:51 04/26/2023 15:12:25 Osteoarthritis of right hip joint [id number] M16.11 [id number] Jonas Mckeon MD [facility] [address] [place] [address] 05/12/2023 09:15:48 05/14/2023 11:46:17 History of total replacement of right hip joint [id number] 62161 Z96.736 [id number] Jonas Mckeon MD [facility] [address] [place] [address] 06/11/2023 10:46:11 06/11/2023 14:42:45 History of total replacement of right hip joint [id number] 00353 Z96.641 Health Concerns Section Related Observation LastModified by Organization Detai ls LastModified Time None Recorded Concern Status LastModified by Organization Details LastModified Time None Recorded Advance Directives Directive None Recorded Payers Encounter Date Sequence Insurance Name Policy Number Policy Friedman Covered Member ID Friedman Member ID Guarantor Name 11/30/2022 1 [employer] (MEDICARE REPLACEMENT PPO) [id number] Curtis S Dalla Rafaela [id number] Curtis S Dalla [place] 02/01/2023 1 [employer] (MEDICARE REPLACEMENT PPO) [id number] Curtis S Dalla [place] [id number] Curtis S Dalla Rafaela 04/26/2023 1 [employer] (MEDICARE REPLACEMENT PPO) [id number] Curtis S Dalla Rafaela [id number] Curtis S Dalla [place] 05/12/2023 1 [employer] (MEDICARE REPLACEMENT PPO) [id number] Curtis S Dalla [place] [id number] Curtis S Dalla [place] 06/11/2023 1 [employer] (MEDICARE REPLACEMENT PPO) [id number] Curtis S Dalla [place]a [id number] Curtis S Dalla Rafaela Notes Date Note Type Note Provider Name and Address Organization Details Recorded Time 02/01/2023 text/html knee patient returns. We last saw him 2 months ago. At that time the he was having good days and bad days taking occasional Aleve tablet. He went through physical therapy. He feels that his right hip is on improved and although he does have some good days, his bad days are so severe that he can not sleep at night because of the groin pain that radiates to his knee. Overall he feels his pain is getting worse. X-rays today of the right hip show less than 1 mm of superior medial joint space remaining and increased cystic lucencies in the superior femoral head. His symptoms started 5 months ago after a long walk and having severe pain the next morning an MRI scan showing subchondral edema of the femoral head superiorly and moderate joint space narrowing and he has had progressive cartilage loss ever since. The He realizes that he is at higher risk for medical complications and because of his advanced age but he wants to proceed With hip replacement surgery. MD Lorenza Corley [facility], [facility] [address], [place], [address], [place] - [facility] 02/03/2023 20:20:03
[2024-09-06 08:06] LABS: Basophils Percent Auto 0.6 % (0.2-1.2); Eosinophils Absolute Auto 0.2 K/mm3 (0-0.3); Eosinophils Percent Auto 3.2 % (0-4.4); Hematocrit 34.1 % (42.0-52.0); Hemoglobin 10.8 g/dL (14.0-18.0); Immature Granulocyte Absolute 0.03 K/mm3 (0.00-0.031); Immature Granulocyte Percent A 0.4 % (0-0.5); Lymphocytes Absolute Auto 1.74 K/mm3 (0.9-3.2); Lymphocytes Percent Auto 24.6 % (18.3-44.2); Mean Corpuscular HGB Conc 31.7 g/dl (32-36); Mean Corpuscular Hemoglobin 31.2 pg (26-34); Mean Corpuscular Volume 98.6 fl (80-100); Mean Platelet Volume 10.2 fl (7.4-10.4); Monocytes Absolute Auto 0.7 K/mm3 (0.1-0.6); Monocytes Percent Auto 9.2 % (2.6-8.5); Neutrophils Absolute Auto 4.4 K/mm3 (1.3-6.7); Platelet Count Result 222 k/mm3 (150-375); Red Blood Count 3.46 M/mm3 (4.6-6.20); Red Cell Distribution Width 14.5 % (11.5-14.5); White Blood Count 7.1 K/mm3 (4.5-10.0)
[2024-09-06 08:17] LABS: Alanine Aminotransferase 20 U/L (6-50); Alkaline Phosphatase 63 U/L (38-126); Anion Gap 9 mmol/L (4-12); Aspartate Amino Transferase 28 U/L (17-59); Bilirubin,Total 0.7 mg/dL (0.2-1.3); Blood Urea Nitrogen 39 mg/dL (9-20); Calcium 8.8 mg/dL (8.4-10.2); Carbon Dioxide 23 mmol/L (22-30); Chloride 109 mmol/L (98-107); Cholesterol 137 mg/dL (0-200); Estimated Glomerular Filt Rate 36; Glucose 101 mg/dL (65-110); HDL Direct 43 mg/dL; Sodium 141 mmol/L (137-145); Triglycerides 50 mg/dL (<150)
[2024-09-06 08:21] LABS: Phosphorus 3.7 mg/dL (2.5-4.5)
[2024-09-06 08:28] LABS: LDL Cholesterol Direct 60 mg/dL
[2024-09-06 09:54] LABS: Total Protein Urine Random 9 mg/dL
[2024-09-06 10:33] LABS: Free T4 Free Thyroxine 1.36 ng/dL (0.78-2.19); Vitamin D 25 Hydroxy 39.5 ng/mL
[2024-09-06 10:49] LABS: Hemoglobin A1C 5.9 % (<5.7)
== END 2024-09-06 07:06 | disposition home or self-care (01) ==
LOC: ANHLAB 07:08
PROVIDERS: PCP Internal Medicine; Visit Provider Internal Medicine Nephrology
DX: I12.9 Hypertensive chronic kidney disease with stage 1 through stage 4 chronic kidney disease, or unspecified chronic kidney disease (principal); E11.22 Type 2 diabetes mellitus with diabetic chronic kidney disease; N18.32 Chronic kidney disease, stage 3b; E78.2 Mixed hyperlipidemia; E03.9 Hypothyroidism, unspecified; E55.9 Vitamin D deficiency, unspecified
CPT/HCPCS: 36415; 80053; 80061; 82306; 82570; 83036; 84100; 84156; 84439; 84443; 85025

== ENCOUNTER 2025-01-01 07:56 | Outpatient (CLI) | payer MEDICARE, SELFPAY ==
--- NOTE | ~2025-01-01 | XR_ITS ---
EXAM/ PROCEDURE: XR hand LT min 3V - 01/01/2025 8:10 CDT HISTORY: 89 years old Male with M79.642 - Pain in left hand COMPARISON: None available TECHNIQUE: Three view(s) FINDINGS/ IMPRESSION: Chronic healing fractures of the distal ulna and radius.No acute fractures seen.Joint space narrowing , subchondral sclerosis, subchondral cyst formation and osteophyte formation, compatible with mild os teoarthritis. Reviewed, dictated and finalized at location A.
--- OUTSIDE RECORDS SUMMARY | 2025-01-01 08:14 | XMS_ITS | Clinical Summary ---
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 DOI 05/20/2018-Evelia. [employer] remote monitoring. Syncope and collapse 05/13/2018 Surgical [...] on file Legal Sex Male 7:29 PM [employer] Gender Identity Not on file Sexual Orientation [...] 9:07 AM CDT Height 167.6 cm (5' 6) 10/13/2022 9:07 AM CDT Body Mass Index 35.51 10/13/2022 9:07 AM CDT Plan of Treatment Health Maintenance Due Date Last Done Comments Depression Screening 1935 Fall Risk Assessment 1935 DTaP/Tdap/Td Vaccine (1 - Tdap) 1946 Hepatitis B Screening 1953 Pneumococcal vaccine 65+ (1 of 1 - PCV) 1985 Zoster Vaccine (1 of 2) 1985 Well Visit 65+ 02/09/2000 Influenza Vaccine (#1) 2025 8, 01/22/2014, 02/03/2013, Additional history exists Insurance [employer] MEDICARE Care Teams Linter Saw Sharpener Relationship Specialty Start Date End Date Chauncey Padron MD [address] [facility] [address] [place] [address] PCP - General Internal Medicine 04/12/18
[2025-01-01 09:08] LABS: Anion Gap 8 mmol/L (4-12); Blood Urea Nitrogen 41 mg/dL (9-20); Calcium 8.9 mg/dL (8.4-10.2); Carbon Dioxide 22 mmol/L (22-30); Chloride 108 mmol/L (98-107); Cholesterol 143 mg/dL (0-200); Estimated Glomerular Filt Rate 43; Glucose 114 mg/dL (65-110); HDL Direct 45 mg/dL; Potassium 5.0 mmol/L (3.4-5.0); Sodium 138 mmol/L (137-145); Triglycerides 46 mg/dL (<150)
[2025-01-01 09:23] LABS: Free T4 Free Thyroxine 1.26 ng/dL (0.78-2.19)
[2025-01-01 09:40] LABS: Hemoglobin A1C 6.2 % (<5.7)
[2025-01-01 09:44] LABS: Thyroid Stimulating Hormone 3.580 uIU/mL (0.465-4.680)
== END 2025-01-01 07:57 | disposition home or self-care (01) ==
PROVIDERS: PCP Internal Medicine; Visit Provider Internal Medicine
DX: S52.502D Unspecified fracture of the lower end of left radius, subsequent encounter for closed fracture with routine healing (principal); S52.602D Unspecified fracture of lower end of left ulna, subsequent encounter for closed fracture with routine healing; X58.XXXD Exposure to other specified factors, subsequent encounter; E03.9 Hypothyroidism, unspecified; I12.9 Hypertensive chronic kidney disease with stage 1 through stage 4 chronic kidney disease, or unspecified chronic kidney disease; E11.22 Type 2 diabetes mellitus with diabetic chronic kidney disease; N18.2 Chronic kidney disease, stage 2 (mild); E78.2 Mixed hyperlipidemia
CPT/HCPCS: 36415; 73130; 80048; 80061; 83036; 84439; 84443